=== PATIENT | male | born 1980 | race African-American/Black ===

== ENCOUNTER 2017-09-17 02:02 | Inpatient (IN) | payer OTHER ==
[2017-09-17] MEDS ORDERED: LORAZEPAM INJ 2 MG/1 ML VIAL IV ONE (03:01)
[2017-09-17] MEDS ORDERED: NORMAL SALINE 1000 ML 1,000 ML IV ONE (03:02)
[2017-09-17] MEDS ORDERED: THIAMINE HCL 100 MG in NORMAL SALINE 50 ML IV ONE (03:03)
[2017-09-17] MEDS ORDERED: MIDAZOLAM HCL 100 ML IV PRN (03:05)
[2017-09-17 03:10] LABS: ABSOLUTE BASOPHILS # (AUTO) 0.1 10^3/uL (0.0-0.2); ABSOLUTE LYMPHOCYTES (AUTO) 0.9 10^3/uL (0.5-4.7); ABSOLUTE MONOCYTES (AUTO) 0.8 10^3/uL (0.1-1.4); ABSOLUTE NEUT (AUTO) 6.4 10^3/uL (1.7-8.2); BASOPHILS % (AUTO) 0.7 % (0-2); EOSINOPHILS % (AUTO) 0.5 % (0-6); HEMATOCRIT 39.3 % (37.9-51.0); HEMOGLOBIN 13.2 g/dL (13.5-17.0); HGB HCT DIFFERENCE 0.3; LYMPHOCYTES % (AUTO) 10.7 % (13-45); MEAN CORPUSCULAR HEMOGLOBIN 29.2 pg (27.0-33.4); MEAN CORPUSCULAR HGB CONC 33.6 g/dL (32.0-36.0); MEAN CORPUSCULAR VOLUME 87 fl (80-97); MONOCYTES % (AUTO) 9.6 % (3-13); RED BLOOD COUNT 4.52 10^6/uL (4.35-5.55); RED CELL DISTRIBUTION WIDTH 13.9 % (11.5-14.0); SEGMENTED NEUTROPHILS % (AUTO) 78.5 % (42-78); WHITE BLOOD COUNT 8.1 10^3/uL (4.0-10.5)
--- NOTE | 2017-09-17 03:42 | RADIOLOGY REPORT (SQ) ---
EXAM DESCRIPTION: CT HEAD WITHOUT COMPLETED DATE/TIME: 09/17/2017 3:27 am REASON FOR STUDY: seizure COMPARISON: None. TECHNIQUE: Axial images acquired through the brain without intravenous contrast. Images reviewed wi th bone, brain and subdural windows. Images stored on PACS. All CT scanners at this facility use dose modulation, iterative reconstruction, and/or weight based d osing when appropriate to reduce radiation dose to as low as reasonably achievable (ALARA). [facility]: Dose Right [facility]: CareDose [facility]: Dose Right [facility]: Teradose 4D [facility]: Smart Mirror Digital RADIATION DOSE: Up-to-date CT equipment and radiation dose reduction techniques were employed. CTDIv ol: 29.0 mGy. DLP: 639 mGy-cm. mGy. LIMITATIONS: None. FINDINGS: VENTRICLES: Normal size and contour. CEREBRUM: No mass effect. No hemorrhage. No midline shift. Normal eng/white matter differentiatio n. No evidence for acute territorial infarction. CEREBELLUM: No mass effect. No hemorrhage. No alteration of density. No evidence for acute infarct ion. EXTRAAXIAL SPACES: No fluid collections. ORBITS AND GLOBE: Symmetrical contour of the globes. CALVARIUM: No depressed skull fracture. PARANASAL SINUSES: No air-fluid level. SOFT TISSUES: No hematoma. IMPRESSION: No acute intracranial hemorrhage or acute territorial infarct. EVIDENCE OF ACUTE STROKE: NO. COMMENT: Quality ID # [id number]: Final reports with documentation of one or more dose reduction techniques (e.g., Automated exposure control, adjustment of the mA and/or kV according to patient size, use of iterative reconstruction technique) TECHNICAL DOCUMENTATION: JOB ID: [id number] [employer]- All Rights Reserved
[2017-09-17 04:03] LABS: ALANINE AMINOTRANSFERASE 138 U/L (21-72); ALKALINE PHOSPHATASE 44 U/L (38-126); ANION GAP 16 (5-19); ASPARTATE AMINO TRANSFERASE 90 U/L (17-59); BILIRUBIN,DIRECT 0.4 mg/dL (0.0-0.4); BILIRUBIN,TOTAL 0.7 mg/dL (0.2-1.3); BLOOD UREA NITROGEN 13 mg/dL (7-20); CALCIUM 10.6 mg/dL (8.4-10.2); CARBON DIOXIDE 24 mmol/L (22-30); CHLORIDE 96 mmol/L (98-107); CREATININE RESULT 0.72 mg/dL (0.52-1.25); GLUCOSE 108 mg/dL (75-110); LIPASE 160.8 U/L (23-300); MAGNESIUM 1.9 mg/dL (1.6-2.3); POTASSIUM 4.4 mmol/L (3.6-5.0); SODIUM 136.3 mmol/L (137-145); TOTAL PROTEIN 7.9 g/dL (6.3-8.2)
--- NOTE | 2017-09-17 04:14 | ER Document Report ---
ED General - General Chief Complaint: Probable Seizure Stated Complaint: POSSIBLE SEIZURE Time Seen by Provider: 09/17/17 02:35 Notes: Patient is a 29-year-old male who presents with complaint of seizure-like activity. Patient says all day he has felt very anxious and has been sweating and having almost what feels to be hallucinations to him. He does have history of anxiety and panic but says he does not think it is a reason to be anxious or panicky right now. He does have a history of PTSD. In further review of history comes out that he is an alcoholic. He says he does drink every day. He says he drinks between 6-8 beers a day. He says he has not drink any alcohol in the last 36 hours. Today had a witnessed seizure by the . says the seizure lasted close to 20 minutes. She says that he was foaming at the mouth and clenched very tight in all his muscles and throughout his jaw. He has no previous history of seizure disorder. He says his muscles are sore all over because of the episode. TRAVEL OUTSIDE OF THE [place] IN LAST 30 DAYS: No - Related Data Allergies/Adverse Reactions: No Known Allergies Allergy (Verified 04/13/12 02:19) Past Medical History - Social History Smoking Status: Unknown if Ever Smoked Frequency of alcohol use: Heavy Drug Abuse: None Family History: Reviewed & Not Pertinent Patient has suicidal ideation: No Patient has homicidal ideation: No Renal/ Medical History: Denies: Hx Peritoneal Dialysis - Immunizations Hx Diphtheria, Pertussis, Tetanus Vaccination: - nutd Review of Systems - Review of Systems Notes: My Normal Review Basic REVIEW OF SYSTEMS: CONSTITUTIONAL : Denies fever, chills, or sweats. Denies recent illness. EENT: Denies eye, ear, throat, or mouth pain or symptoms. Denies nasal or sinus congestion. RESPIRATORY: Denies cough, cold, or chest congestion. Denies shortness of breath, difficulty breathing, or wheezing. GASTROINTESTINAL: Denies abdominal pain. Denies nausea, vomiting, or diarrhea. MUSCULOSKELETAL: Denies neck or back pain or joint pain or swelling. SKIN: Denies rash or skin lesions. HEMATOLOGIC : Denies easy bruising or bleeding. LYMPHATIC: Denies swollen, enlarged glands. NEUROLOGICAL: Had seizure-like activity.. PSYCHIATRIC: PTSD.. ALL OTHER SYSTEMS REVIEWED AND NEGATIVE. Physical Exam - Vital signs Vitals: Temp Pulse Resp BP Pulse Ox 98.4 F 95 16 145/95 H 97 09/17/17 02:09 09/17/17 02:09 09/17/17 02:09 09/17/17 02:09 09/17/17 02:09 - Notes Notes: General Appearance: Well nourished, alert, cooperative, no acute distress, no obvious discomfort. Vitals: reviewed, See vital signs table. Head: no swelling or tenderness to the head Eyes: PERRL, EOMI, Conjuctiva clear Mouth: No decreasd moisture Neck: Supple, no neck tenderness Lungs: No wheezing, No rales, No rhonci, No accessory muscle use, good air exchange bilaterally. Heart: Normal rate, Regular rythm, No murmur, no rub Abdomen: Normal BS, soft, No rigidity, No abdominal tenderness, No guarding, no rebound, no abdominal masses, no organomegaly Extremities: strength 5/5 in all extremities, good pulses in all extremities, no swelling or tenderness in the extremities, no edema. Skin: warm, dry, appropriate color, no rash Neuro: speech clear, oriented x 3, normal affect, responds appropriately to questions. Cranial nerves II through XII are intact. Distal sensation intact. Patient was all extremities without difficulty. No focal weakness or numbness. Patient does have a tremor. Course - Re-evaluation Re-evalutation: 09/17/17 04:36 His has have tremors improved. His heart rate is normal. The Ativan has helped him significantly. Is now a little bit somnolent from Ativan. Have given him thiamine as well as folic acid. Patient will be admitted for further monitoring and observation due to what appears to be alcohol withdrawal causing a seizure. 09/17/17 04:37 Dictation of this chart was performed using voice recognition software; therefore, there may be some unintended grammatical errors. - Vital Signs Vital signs: Temp Pulse Resp BP Pulse Ox 98.4 F 95 16 145/95 H 97 09/17/17 02:09 09/17/17 02:09 09/17/17 02:09 09/17/17 02:09 09/17/17 02:09 - Laboratory Result Diagrams: 09/17/17 02:50 09/17/17 02:50 Laboratory results interpreted by me: 09/17/17 09/17/17 02:50 02:50 Hgb 13.2 L Seg Neutrophils % 78.5 H Lymphocytes % 10.7 L Sodium 136.3 L Chloride 96 L Calcium 10.6 H AST 90 H ALT 138 H - EKG Interpretation by Me Additional EKG results interpreted by me: 09/17/17 04:13 EKG is reviewed and interpreted by me. EKG shows some concave up ST segment elevation in lead V1 and also in some of the lateral precordial leads. This is consistent with early repolarization abnormality. ME interval, QRS duration, QTc intervals are within normal range. No old EKG available for comparison. Discharge - Discharge Clinical Impression: Seizure Alcohol withdrawal Qualifiers: Complication of substance-induced condition: with unspecified complication Qualified Code(s): F10.239 - Alcohol dependence with withdrawal, unspecified Condition: Stable Disposition: ADMITTED OBSERVATION Admitting Provider: Hospitalist Unit Admitted: Telemetry
[2017-09-17] MEDS ORDERED: FOLIC ACID INJ 5 MG/1 ML 10 ML VIAL IV ONE (05:00)
[2017-09-17] MEDS ORDERED: MAG HYDROX/AL HYDROX/SIMETH SUSP 30 ML UDCUP PO PRN (05:01)
[2017-09-17] MEDS ORDERED: MAGNESIUM HYDROXIDE SUSP 30 ML UDCUP PO PRN (05:01)
[2017-09-17] MEDS ORDERED: ONDANSETRON HCL INJ/PF 4 MG/2 ML SDV IV PRN (05:01)
[2017-09-17] MEDS ORDERED: PROMETHAZINE HCL 25 MG SUPP.RECT PR PRN (05:01)
[2017-09-17] MEDS ORDERED: NORMAL SALINE 1000 ML 1,000 ML IV PRN (05:01)
[2017-09-17] MEDS ORDERED: LORAZEPAM INJ 2 MG/1 ML VIAL IV PRN (05:06)
--- NOTE | 2017-09-17 05:18 | PDOC H&P ---
History of Present Illness Admission Date/PCP: 09/17/17 04:44 [place] History of Present Illness: KANNAN GERARDO is a 37 year old male with a past medical history significant for hip osteoarthritis who presents to the emergency department with new onset seizure. According to patient's , who is present at bedside and from whom this history is obtained she reports that he has been acting different all day. He reports that he has been hallucinating and would then become short of breath and diaphoretic. She thought he was having an anxiety attack and they went to bed. He fell asleep he woke up and when he woke up from sleep she reports that he began having tonic movement and foaming at the mouth. There was no loss of bowel or bladder function. She reports that he normally drinks 4 -5 16 ounce beers daily plus hard liquor. He has not drink in the last 24 hours. He has no prior history of seizures and no history of recent trauma. Past Medical History Medical History: None Past Surgical History Past Surgical History: Reports: None Social History Information Source: Relative Lives with: Spouse/Significant other Smoking Status: Current Every Day Smoker Cigarettes Packs Per Day: 1 Frequency of Alcohol Use: Heavy Hx Recreational Drug Use: No Hx Prescription Drug Abuse: No - Advance Directive Resuscitation Status: Full Code Surrogate healthcare decision maker:: Mely Gerardo, Family History Family History: CAD Parental Family History Reviewed: Yes Children Family History Reviewed: Yes Sibling(s) Family History Reviewed.: Yes Medication/Allergy Home Medications: No Home Medications 1 04/13/12 Cephalexin Monohydrate [Keflex 500 mg Capsule] 500 mg PO QID 10 Days capsule Allergies/Adverse Reactions: No Known Allergies Allergy (Verified 04/13/12 02:19) Review of Systems ROS unobtainable: Due to mental status Physical Exam Vital Signs: Temp Pulse Resp BP Pulse Ox 98.4 F 95 16 145/95 H 97 09/17/17 02:09 09/17/17 02:09 09/17/17 02:09 09/17/17 02:09 09/17/17 02:09 General appearance: PRESENT: well-developed, well-nourished, other - Sleeping soundly Head exam: PRESENT: atraumatic, normocephalic Eye exam: PRESENT: conjunctiva pink, PERRLA. ABSENT: EOMI - Unable to assess due to sedation, scleral icterus Ear exam: PRESENT: normal external ear exam Mouth exam: PRESENT: other - Unable to assess due to sedation Neck exam: ABSENT: JVD, lymphadenopathy, thyromegaly, tracheal deviation Respiratory exam: PRESENT: clear to auscultation zuhair, unlabored. ABSENT: accessory muscle use, crackles, rales, rhonchi, tachypnea, wheezes Cardiovascular exam: PRESENT: RRR, +S1, +S2, tachycardia. ABSENT: diastolic murmur, gallop, rubs, systolic murmur Pulses: PRESENT: normal dorsalis pedis pul Vascular exam: PRESENT: normal capillary refill GI/Abdominal exam: PRESENT: normal bowel sounds, soft. ABSENT: distended, firm , guarding, mass, Valero's sign, organolmegaly, rebound, rigid, tenderness Rectal exam: PRESENT: deferred Extremities exam: PRESENT: full ROM. ABSENT: calf tenderness, clubbing, pedal edema Neurological exam: PRESENT: other - Sedated Psychiatric exam: PRESENT: other - Sedated Skin exam: PRESENT: dry, intact, warm. ABSENT: cyanosis, rash Results Laboratory Results: 09/17/17 09/17/17 09/17/17 02:50 02:50 02:50 WBC 8.1 Hgb 13.2 L Hct 39.3 Plt Count 218 Sodium 136.3 L Potassium 4.4 Chloride 96 L Anion Gap 16 BUN 13 Creatinine 0.72 Glucose 108 Calcium 10.6 H Magnesium 1.9 Total Bilirubin 0.7 Direct Bilirubin 0.4 AST 90 H ALT 138 H Alkaline Phosphatase 44 Total Protein 7.9 Albumin 5.0 Lipase 160.8 Serum Alcohol Pending Impressions: Head CT 09/17/17 03:04 IMPRESSION: No acute intracranial hemorrhage or acute territorial infarct. EVIDENCE OF ACUTE STROKE: NO. Assessment & Plan - Diagnosis (1) Delirium tremens Is this a current diagnosis for this admission?: Yes Plan: Patient had alcohol withdrawal seizure. Place patient on thiamine, folic acid, multivitamin, and monitor on telemetry for arrhythmia. Magnesium is only slightly low. Continue to monitor. Place patient on scheduled Valium and as needed Ativan. Seizure precautions. (2) Seizure Is this a current diagnosis for this admission?: Yes Plan: Patient had new onset seizure likely secondary to alcohol withdrawal. We will monitor this patient in place on scheduled Valium. (3) Anemia Qualifiers: Anemia type: unspecified type Qualified Code(s): D64.9 - Anemia, unspecified Is this a current diagnosis for this admission?: Yes Plan: Monitor and transfuse if drops below 8 (4) Hyponatremia Is this a current diagnosis for this admission?: Yes Plan: Likely secondary to intravascular volume depletion. Will start on IV fluids (5) Tobacco abuse Is this a current diagnosis for this admission?: Yes Plan: Nicotine patch - Time Time Spent: 30 to 50 Minutes Medications reviewed and adjusted accordingly: Yes Anticipated discharge: Home Within: Other - Upon improvement of symptomatology - Inpatient Certification Based on my medical assessment, after consideration of the patient's comorbidities, presenting symptoms, or acuity I expect that the services needed warrant INPATIENT care.: Yes I certify that my determination is in accordance with my understanding of Medicare's requirements for reasonable and necessary INPATIENT services [42 CFR 412.3e].: Yes Medical Necessity: Need For IV Fluids, Need For Continuous Telemetry Monitoring , Risk of Complication if Not Cared For in Hospital Post Hospital Care: D/C Literacy Coordinator Documentation
[2017-09-17 05:21] LABS: PROTHROMBIN TIME 11.8 SEC (11.4-15.4)
[2017-09-17 06:02] LABS: APPEARANCE,URINE CLEAR; BILIRUBIN,URINE NEGATIVE (NEGATIVE); GLUCOSE, URINE NEGATIVE (NEGATIVE); KETONES,URINE 80 mg/dL (NEGATIVE); LEUKOCYTE ESTERASE,URINE NEGATIVE (NEGATIVE); NITRITE,URINE NEGATIVE (NEGATIVE); PROTEIN,URINE 100 mg/dL (NEGATIVE); URINE SPECIFIC GRAVITY 1.016; UROBILINOGEN,URINE NEGATIVE mg/dL (<2.0)
[2017-09-17 06:12] LABS: URINE BARBITURATES SCREEN NEGATIVE; URINE METHADONE SCREEN NEGATIVE; URINE OPIATES LOW NEGATIVE; URINE PHENCYCLIDINE SCREEN NEGATIVE
[2017-09-17] MEDS ORDERED: THIAMINE HCL INJ 200 MG/2 ML VIAL ONE (06:24)
[2017-09-17] MEDS: DIAZEPAM 5 MG TABLET PO SCH ×4 (07:17→23:02)
[2017-09-17] MEDS: LANSOPRAZOLE 15 MG TAB.RAP.DR PO SCH ×2 (07:18→17:47)
[2017-09-17] MEDS: ENOXAPARIN SODIUM INJ 40 MG/0.4 ML DISP.SYRIN SUBCUT SCH (09:08)
[2017-09-17] MEDS ORDERED: NICOTINE 14 MG/24 HR PATCH.TD24 TD SCH (10:00)
[2017-09-17] MEDS: NICOTINE 21 MG/24 HR PATCH.TD24 TD SCH (11:08)
--- NOTE | 2017-09-17 12:47 | Progress Note ---
Provider Note Provider Note: Patient is seen this morning. He did state that he had had some beer on Sunday and he had his seizure early Sunday morning. in the room at bedside states that he needs assistance and possibly rehab the patient denies needing rehab at this point and said that he could quit if he wanted to. Encourage alcohol and smoking cessation. Offered some information regarding both. I have increased his nicotine patch to 21 day, and did have a long discussion regarding lifestyle modification changes in behavior needed and to avoid alcohol use. No further intervention with an seizure medication needed at this time continue to monitor and follow.
[2017-09-17] MEDS: ACETAMINOPHEN 325 MG TABLET PO PRN ×2 (17:36→21:39)
[2017-09-17] MEDS ORDERED: NORMAL SALINE 1000 ML 1,000 ML with POTASSIUM CHLORIDE 20 MEQ, MAGNESIUM SULFATE 8 MEQ,... IV SCH ×5 (18:00)
[2017-09-17] MEDS ORDERED: NICOTINE 21 MG/24 HR PATCH.TD24 TD ONE (18:00)
--- NOTE | 2017-09-17 19:11 | EKG REPORT ---
SEVERITY:- ABNORMAL ECG - SINUS RHYTHM LEFT VENTRICULAR HYPERTROPHY ST ELEV, PROBABLE NORMAL EARLY REPOL PATTERN VS LVH VS NM : Confirmed by: Jose De Jesus Tuttle 17-Sep-2017 19:10:59
[2017-09-18] MEDS: DIAZEPAM 5 MG TABLET PO SCH ×2 (05:05→11:09)
[2017-09-18] MEDS: LANSOPRAZOLE 15 MG TAB.RAP.DR PO SCH (05:05)
[2017-09-18 07:13] LABS: ABSOLUTE LYMPHOCYTES (AUTO) 1.1 10^3/uL (0.5-4.7); ABSOLUTE MONOCYTES (AUTO) 0.7 10^3/uL (0.1-1.4); BASOPHILS % (AUTO) 0.6 % (0-2); EOSINOPHILS % (AUTO) 0.5 % (0-6); HEMATOCRIT 37.6 % (37.9-51.0); HEMOGLOBIN 12.7 g/dL (13.5-17.0); HGB HCT DIFFERENCE 0.5; LYMPHOCYTES % (AUTO) 15.7 % (13-45); MEAN CORPUSCULAR HEMOGLOBIN 29.9 pg (27.0-33.4); MEAN CORPUSCULAR HGB CONC 33.9 g/dL (32.0-36.0); MEAN CORPUSCULAR VOLUME 88 fl (80-97); MONOCYTES % (AUTO) 9.9 % (3-13); RED BLOOD COUNT 4.26 10^6/uL (4.35-5.55); RED CELL DISTRIBUTION WIDTH 14.4 % (11.5-14.0); SEGMENTED NEUTROPHILS % (AUTO) 73.3 % (42-78); WHITE BLOOD COUNT 6.9 10^3/uL (4.0-10.5)
[2017-09-18 07:33] LABS: ALANINE AMINOTRANSFERASE 124 U/L (21-72); ALBUMIN 4.4 g/dL (3.5-5.0); ALKALINE PHOSPHATASE 34 U/L (38-126); ANION GAP 15 (5-19); ASPARTATE AMINO TRANSFERASE 101 U/L (17-59); BILIRUBIN,DIRECT 0.4 mg/dL (0.0-0.4); BILIRUBIN,TOTAL 0.7 mg/dL (0.2-1.3); BLOOD UREA NITROGEN 9 mg/dL (7-20); CALCIUM 9.8 mg/dL (8.4-10.2); CARBON DIOXIDE 22 mmol/L (22-30); CHLORIDE 104 mmol/L (98-107); CREATININE RESULT 0.81 mg/dL (0.52-1.25); GLUCOSE 89 mg/dL (75-110); POTASSIUM 4.6 mmol/L (3.6-5.0); SODIUM 140.6 mmol/L (137-145); TOTAL PROTEIN 6.8 g/dL (6.3-8.2)
[2017-09-18] MEDS: ACETAMINOPHEN 325 MG TABLET PO PRN (09:50)
[2017-09-18] MEDS: NICOTINE 21 MG/24 HR PATCH.TD24 TD SCH (09:50)
[2017-09-18] MEDS: ENOXAPARIN SODIUM INJ 40 MG/0.4 ML DISP.SYRIN SUBCUT SCH (09:51)
[2017-09-18 14:56] VITALS: BP 125/83
--- NOTE | 2017-09-18 15:44 | PDOC DISCHARGE SUMMARY ---
General - Admit/Disc Date/PCP Admission Date/Primary Care Provider: 09/17/17 05:01 Discharge Date: 09/18/17 - Discharge Diagnosis (1) Alcohol withdrawal Summary: Pt was admitted for new onset seizure in the setting of alcohol withdrawal. Pt reports drinking "at least a 6-pack a day with some harder stuff sometimes." His last alcoholic drink prior to seizure was > 24 hours. He was admitted with EtOH withdrawal protocol and received scheduled valium. He did not require prn ativan and did not experience any additional seizure activity. Pt declined to stay for continued EtOH detox and to meet with discharge planning to arrange outpatient rehab or intensive therapy. He did briefly meet with Social Work and was provided community resources. (2) Anemia Is this a current diagnosis for this admission?: Yes Summary: Stable at 12.7; recommend outpatient follow up. Likely r/t nutritional deficiency in setting of EtOH dependance. (3) Delirium tremens Is this a current diagnosis for this admission?: Yes Summary: As above. (4) Hyponatremia Is this a current diagnosis for this admission?: Yes Summary: Resolved. (5) Seizure Is this a current diagnosis for this admission?: Yes Summary: Per ; seizure-like activity noted to include tonic movements and foaming at the mouth after cessation of alcohol intake > 24 hours previously. No additional seizures noted while admitted. Long discussion had with patient, present, with regard to increased seizure risk r/t alcohol intake and sudden cessation of EtOH. Recommended continued inpatient treatment of alcohol withdrawal with scheduled and prn BZO; pt declined. Encouraged to return to ED for worsening withdrawal and increased seizure activity. (6) Tobacco abuse Is this a current diagnosis for this admission?: Yes - Additional Information Resuscitation Status: Full Code Discharge Diet: As Tolerated Discharge Activity: Activity As Tolerated, Balance Activity w/Rest Home Medications: Bupropion HCl [Wellbutrin Xl 300mg 24hr Tablet] 300 mg PO DAILY 09/17/17 Escitalopram Oxalate [Lexapro] 10 mg PO DAILY 09/17/17 Diazepam [Valium 5 mg Tablet] 5 mg PO TID #9 tablet 09/18/17 Folic Acid [Folvite 1 mg Tablet] 1 mg PO DAILY #30 tablet 09/18/17 Thiamine HCl [Thiamine 100 mg Tablet] 100 mg PO DAILY #30 tablet 09/18/17 History of Present Illness Patient complains of: Hx of new-onset seizure History of Present Illness: Per H&P by Dr. Loaiza: KANNAN MENDES is a 37 year old male with a past medical history significant for hip osteoarthritis who presents to the emergency department with new onset seizure. According to patient's wide, who is present at bedside and from whom this history is obtained she reports that he has been acting differently all day. He reports that he has been hallucinating and would then become short of breath and diaphoretic. She thought he was having anxiety attack and they went to bed. He fell asleep he woke up and when he woke up from sleep she reports that he began having tonic movement and foaming at the mouth. There was no loss of bowel or bladder function. She reports that he normally drinks 4-5 16 ounce beers daily plus hard liquor. He has not drink in the last 24 hours. He has no prior history of seizure and no history of recent trauma. Hospital Course Hospital Course: Pt was admitted for new-onset seizure r/t EtOH withdrawal. He was placed on withdrawal protocol with scheduled valium and prn ativan. No additional seizure -like activity was noted. Pt is adamant with regard to discharge home today and declines to remain inpatient for continued detox/etoh withdrawal management or to meet with corporate event planner to arrange outpatient therapy. His discharged home in stable condition with rx for valium and community resource information. Physical Exam Vital Signs: Temp Pulse Resp BP Pulse Ox 98.1 F 80 17 125/83 95 09/18/17 14:54 09/18/17 14:54 09/18/17 14:54 09/18/17 14:54 09/18/17 14:54 Intake & Output 09/17/17 09/18/17 09/19/17 06:59 06:59 06:59 Intake Total 2330 222 Balance 2330 222 Weight 61.1 kg General appearance: PRESENT: no acute distress, well-developed, well-nourished Head exam: PRESENT: atraumatic, normocephalic Eye exam: PRESENT: conjunctiva pink, EOMI, PERRLA. ABSENT: scleral icterus Ear exam: PRESENT: normal external ear exam Mouth exam: PRESENT: moist, tongue midline Neck exam: ABSENT: carotid bruit, JVD, lymphadenopathy, thyromegaly Respiratory exam: PRESENT: clear to auscultation zuhair. ABSENT: rales, rhonchi, wheezes Cardiovascular exam: PRESENT: RRR. ABSENT: diastolic murmur, rubs, systolic murmur Pulses: PRESENT: normal dorsalis pedis pul Vascular exam: PRESENT: normal capillary refill GI/Abdominal exam: PRESENT: normal bowel sounds, soft. ABSENT: distended, guarding, mass, organolmegaly, rebound, tenderness Rectal exam: PRESENT: deferred Extremities exam: PRESENT: full ROM. ABSENT: calf tenderness, clubbing, pedal edema Neurological exam: PRESENT: alert, awake, oriented to person, oriented to place , oriented to time, oriented to situation, CN II-XII grossly intact. ABSENT: motor sensory deficit Psychiatric exam: PRESENT: appropriate affect, normal mood. ABSENT: homicidal ideation, suicidal ideation Skin exam: PRESENT: dry, intact, warm. ABSENT: cyanosis, rash Results Laboratory Results: 09/18/17 06:34 09/18/17 06:34 09/18/17 09/18/17 06:34 06:34 WBC 6.9 RBC 4.26 L Hgb 12.7 L Hct 37.6 L MCV 88 MCH 29.9 MCHC 33.9 RDW 14.4 H Plt Count 194 Seg Neutrophils % 73.3 Lymphocytes % 15.7 Monocytes % 9.9 Eosinophils % 0.5 Basophils % 0.6 Absolute Neutrophils 5.0 Absolute Lymphocytes 1.1 Absolute Monocytes 0.7 Absolute Eosinophils 0.0 Absolute Basophils 0.0 Sodium 140.6 Potassium 4.6 Chloride 104 Carbon Dioxide 22 Anion Gap 15 BUN 9 Creatinine 0.81 Est GFR ( Amer) > 60 Est GFR (Non-Af Amer) > 60 Glucose 89 Calcium 9.8 Magnesium 2.0 Total Bilirubin 0.7 AST 101 H ALT 124 H Alkaline Phosphatase 34 L Total Protein 6.8 Albumin 4.4 Impressions: Head CT 09/17/17 03:04 IMPRESSION: No acute intracranial hemorrhage or acute territorial infarct. EVIDENCE OF ACUTE STROKE: NO.
== END 2017-09-18 15:44 | disposition home or self-care (01) | DRG 897 ==
LOC: ER 02:02 → EH 04:44 → OBSVTOIN 05:01 → 3S 07:01
PROVIDERS: ADMIT Family Medicine; ATTEND Family Medicine
DX: F10.231 Alcohol dependence with withdrawal delirium (principal); E87.1 Hypo-osmolality and hyponatremia; Y90.0 Blood alcohol level of less than 20 mg/100 ml; F17.210 Nicotine dependence, cigarettes, uncomplicated; R56.9 Unspecified convulsions; M16.10 Unilateral primary osteoarthritis, unspecified hip; D64.9 Anemia, unspecified; Z82.49 Family history of ischemic heart disease and other diseases of the circulatory system
CPT/HCPCS: 36415; 70450; 80053; 80307; 81001; 82550; 83690; 83735; 84443; 85025; 85610; 93005; 93010; 96361; 96374; 96375; 99285; J1650; J2060; J3411; J3475; J3480; J3490; J7030

== ENCOUNTER 2017-10-06 18:56 | Emergency (ER) | payer OTHER ==
[2017-10-06] MEDS ORDERED: LORAZEPAM 1 MG TABLET PO ONE (19:19)
--- NOTE | 2017-10-06 19:19 | ER Document Report ---
ED General - General Chief Complaint: Anxiety Stated Complaint: SEIZURE Time Seen by Provider: 10/06/17 19:18 Mode of Arrival: Ambulatory Information source: Patient Notes: 37-year-old male history of alcohol abuse who drinks approximately 2-3 24 ounces beers a day plus hard liquor presents with concerns that he is anxious feels like he is going to seize. Patient notes the last time he was admitted after seizure. He was having hallucinations at that time. Patient denies any fevers or chills denies any nausea vomiting diarrhea. Patient did not actually seize this time. TRAVEL OUTSIDE OF THE [place] IN LAST 30 DAYS: No - HPI Onset: Just prior to arrival - Patient's last drink was last night Onset/Duration: Sudden Quality of pain: No pain Severity: Mild Pain Level: Denies Associated symptoms: Other - Anxious Exacerbated by: Denies Relieved by: Other - Alcohol Similar symptoms previously: Yes Recently seen / treated by doctor: Yes - Related Data Allergies/Adverse Reactions: No Known Allergies Allergy (Verified 10/06/17 18:58) Past Medical History - Social History Smoking Status: Never Smoker Cigarette use (# per day): No Chew tobacco use (# tins/day): No Smoking Education Provided: No Family History: CAD Patient has suicidal ideation: No Patient has homicidal ideation: No Renal/ Medical History: Denies: Hx Peritoneal Dialysis Psychiatric Medical History: Denies: Hx Depression - Immunizations Hx Diphtheria, Pertussis, Tetanus Vaccination: - nutd Review of Systems - Review of Systems Notes: REVIEW OF SYSTEMS: CONSTITUTIONAL : Denies fever, chills, or sweats. Denies recent illness. EENT: Denies eye, ear, throat, or mouth pain or symptoms. Denies nasal or sinus congestion or discharge. Denies throat, tongue, or mouth swelling or difficulty swallowing. CARDIOVASCULAR: Denies chest pain. Denies palpitations or racing or irregular heart beat. Denies ankle edema. RESPIRATORY: Denies cough, cold, or chest congestion. Denies shortness of breath, difficulty breathing, or wheezing. GASTROINTESTINAL: Denies abdominal pain or distention. Denies nausea, vomiting , or diarrhea. Denies blood in vomitus, stools, or per rectum. Denies black, tarry stools. Denies constipation. GENITOURINARY: Denies difficulty urinating, painful urination, burning, frequency, blood in urine, or discharge. MUSCULOSKELETAL: Denies back or neck pain or stiffness. Denies joint pain or swelling. SKIN: Denies rash, lesions or sores. HEMATOLOGIC : Denies easy bruising or bleeding. LYMPHATIC: Denies swollen, enlarged glands. NEUROLOGICAL: Admits to anxiety PSYCHIATRIC: Denies anxiety or stress. Denies depression, suicidal ideation, or homicidal ideation. ALL OTHER SYSTEMS REVIEWED AND NEGATIVE. Dictation was performed using [employer] voice recognition software PHYSICAL EXAMINATION: GENERAL: Well-appearing, well-nourished and in no acute distress. HEAD: Atraumatic, normocephalic. EYES: Pupils equal round and reactive to light, extraocular movements intact, sclera anicteric, conjunctiva are normal. ENT: Nares patent, oropharynx clear without exudates. Moist mucous membranes. NECK: Normal range of motion, supple without lymphadenopathy LUNGS: Breath sounds clear to auscultation bilaterally and equal. No wheezes rales or rhonchi. HEART: Regular rate and rhythm without murmurs ABDOMEN: Soft, nontender, nondistended abdomen. No guarding, no rebound. No masses appreciated. Musculoskeletal: Normal range of motion, no pitting or edema. No cyanosis. NEUROLOGICAL: Cranial nerves grossly intact. Normal speech, normal gait. Normal sensory, motor exams PSYCH: Normal mood, normal affect. SKIN: Warm, Dry, normal turgor, no rashes or lesions noted. Physical Exam - Vital signs Vitals: Temp Pulse Resp BP Pulse Ox 98.3 F 93 18 149/91 H 99 10/06/17 18:58 10/06/17 18:58 10/06/17 18:58 10/06/17 18:58 10/06/17 18:58 Course - Re-evaluation Re-evalutation: 10/06/17 19:31 Patient has not seized today however if he does stop drinking suddenly he does have the possibility of a alcohol withdrawal seizure. Overall he appears mildly anxious 10/06/17 20:31 Patient's lab work notes no significant abnormality, he otherwise looks well in no distress. I will discharge at this time with Ativan and very strict return precautions After performing a Medical Screening Examination, I estimate there is LOW risk for ACUTE GLAUCOMA, TEMPORAL ARTERITIS, MENINGITIS, INCRANIAL HEMORRHAGE, or ISCHEMIC STROKE thus I consider the discharge disposition reasonable. I have reevaluated this patient multiple times and no significant life threatening changes are noted. The patient and I have discussed the diagnosis and risks, and we agree with discharging home with close follow-up with the understanding that symptoms and presentations can change. We also discussed returning to the Emergency Department immediately if new or worsening symptoms occur. We have discussed the symptoms which are most concerning (e.g., changing or worsening symptoms, new numbness or weakness, vomiting, fever) that necessitate immediate return. - Vital Signs Vital signs: Temp Pulse Resp BP Pulse Ox 98.3 F 93 18 149/91 H 99 10/06/17 18:58 10/06/17 18:58 10/06/17 18:58 10/06/17 18:58 10/06/17 18:58 - Laboratory Result Diagrams: 10/06/17 19:26 10/06/17 19:26 Laboratory results interpreted by me: 10/06/17 10/06/17 19:26 19:26 Hgb 13.2 L RDW 14.4 H AST 62 H ALT 91 H Discharge - Discharge Clinical Impression: Anxiety Alcohol withdrawal Qualifiers: Complication of substance-induced condition: uncomplicated Qualified Code(s): F10.230 - Alcohol dependence with withdrawal, uncomplicated Condition: Stable Disposition: HOME, SELF-CARE Instructions: Alcohol Withdrawl ([facility]), Anxiety ([facility]) Additional Instructions: Please follow-up with your primary care physician regarding her alcohol use, do not stop your alcohol use suddenly, wean yourself off slowly so you do not have a seizure Prescriptions: Lorazepam [Ativan 1 mg Tablet] 1 mg PO Q4 PRN #14 tab PRN Reason:
[2017-10-06 19:51] LABS: ABSOLUTE BASOPHILS # (AUTO) 0.1 10^3/uL (0.0-0.2); ABSOLUTE EOSINOPHILS # (AUTO) 0.1 10^3/uL (0.0-0.6); ABSOLUTE LYMPHOCYTES (AUTO) 1.6 10^3/uL (0.5-4.7); ABSOLUTE MONOCYTES (AUTO) 0.7 10^3/uL (0.1-1.4); ABSOLUTE NEUT (AUTO) 7.1 10^3/uL (1.7-8.2); BASOPHILS % (AUTO) 0.5 % (0-2); EOSINOPHILS % (AUTO) 0.7 % (0-6); HEMATOCRIT 39.2 % (37.9-51.0); HEMOGLOBIN 13.2 g/dL (13.5-17.0); HGB HCT DIFFERENCE 0.4; LYMPHOCYTES % (AUTO) 16.6 % (13-45); MEAN CORPUSCULAR HEMOGLOBIN 29.9 pg (27.0-33.4); MEAN CORPUSCULAR HGB CONC 33.7 g/dL (32.0-36.0); MEAN CORPUSCULAR VOLUME 89 fl (80-97); MONOCYTES % (AUTO) 7.7 % (3-13); RED BLOOD COUNT 4.42 10^6/uL (4.35-5.55); RED CELL DISTRIBUTION WIDTH 14.4 % (11.5-14.0); SEGMENTED NEUTROPHILS % (AUTO) 74.5 % (42-78); WHITE BLOOD COUNT 9.6 10^3/uL (4.0-10.5)
[2017-10-06 20:25] LABS: ALANINE AMINOTRANSFERASE 91 U/L (21-72); ALKALINE PHOSPHATASE 42 U/L (38-126); ANION GAP 12 (5-19); ASPARTATE AMINO TRANSFERASE 62 U/L (17-59); BILIRUBIN,DIRECT 0.4 mg/dL (0.0-0.4); BILIRUBIN,TOTAL 0.5 mg/dL (0.2-1.3); BLOOD UREA NITROGEN 10 mg/dL (7-20); CALCIUM 9.9 mg/dL (8.4-10.2); CARBON DIOXIDE 25 mmol/L (22-30); CHLORIDE 103 mmol/L (98-107); CREATININE RESULT 0.74 mg/dL (0.52-1.25); GLUCOSE 83 mg/dL (75-110); POTASSIUM 3.7 mmol/L (3.6-5.0); SODIUM 140.3 mmol/L (137-145); TOTAL PROTEIN 7.8 g/dL (6.3-8.2)
[2017-10-06 20:29] LABS: ALCOHOL < 10 mg/dL (NONE DETECTED)
[2017-10-06 20:43] VITALS: BP 142/87
== END 2017-10-06 20:42 | disposition home or self-care (01) ==
LOC: ER 18:56
DX: F10.230 Alcohol dependence with withdrawal, uncomplicated (principal); F41.9 Anxiety disorder, unspecified
CPT/HCPCS: 36415; 80053; 80307; 85025; 99283

== ENCOUNTER 2018-02-15 14:58 | Emergency (ER) | payer OTHER ==
[2018-02-15] MEDS ORDERED: LORAZEPAM INJ 2 MG/1 ML VIAL IV ONE (15:47)
[2018-02-15] MEDS ORDERED: RINGERS SOLUTION,LACTATED 1,000 ML IV ONE (15:49)
--- NOTE | 2018-02-15 15:53 | ER Document Report ---
ED Substance Abuse / Acc. OD - General Mode of Arrival: Ambulatory Information source: Patient TRAVEL OUTSIDE OF THE [place] IN LAST 30 DAYS: No - HPI Patient complains to provider of: Alcohol withdrawal Onset: Yesterday Associated Symptoms: Other - see notes above <GARTH MATUTE - Last Filed: 02/15/18 15:46> <JOANIE AVILA - Last Filed: 02/15/18 21:15> - General Chief Complaint: Alcohol Withdrawl Stated Complaint: HEADACHE, DIFFICULTY BREATHING Time Seen by Provider: 02/15/18 15:31 Notes: 37 year old male with history of alcohol abuse, PTSD, depression, and anxiety presents to the ED complaining of being in alcohol withdrawal that started last night. Patient reports that he was seen in the ED in September 2017 after having an alcohol withdrawal seizure. Patient reports that he had 12-18 12 oz beers yesterday. Patient's withdrawal symptoms include generalized tremors, nausea, headache, and 'seeing white spots' when he closes his eyes. Patient's symptoms were worse this morning, so the patient drank 3 12 oz beers to help with his symptoms. Patient wants to quit drinking and is open to receiving assistance. PCP: [facility] Patient has prescription bottles of 5mg Valium (filled August 2017) and 1mg Ativan (filled 10/07/2017). (GARTH MATUTE) - Related Data Allergies/Adverse Reactions: No Known Allergies Allergy (Verified 02/15/18 14:59) Past Medical History - General Information source: Patient - Social History Smoking Status: Current Every Day Smoker Chew tobacco use (# tins/day): No Frequency of alcohol use: Heavy Drug Abuse: None Family History: CAD Renal/ Medical History: Denies: Hx Peritoneal Dialysis Psychiatric Medical History: Reports: Hx Anxiety, Hx Depression, Hx Post Traumatic Stress Disorder - Immunizations Hx Diphtheria, Pertussis, Tetanus Vaccination: - nutd <GARTH MATUTE - Last Filed: 02/15/18 15:46> Review of Systems - Review of Systems Constitutional: See HPI, Diaphoresis EENT: See HPI, Other - White spots in his vision when he closes his eyes. Cardiovascular: See HPI, Palpitations, Heart racing Respiratory: No symptoms reported Gastrointestinal: No symptoms reported Neurological/Psychological: See HPI, Anxiety -: Yes All other systems reviewed and negative <JOANIE AVILA - Last Filed: 02/15/18 21:15> Physical Exam <HOTRENCIA MATUTEUR - Last Filed: 02/15/18 15:46> <JOANIE AVILA - Last Filed: 02/15/18 21:15> - Vital signs Vitals: Temp Pulse Resp BP Pulse Ox 98.1 F 127 H 20 170/102 H 100 02/15/18 15:04 02/15/18 15:04 02/15/18 15:04 02/15/18 15:04 02/15/18 15:04 - Notes Notes: GENERAL: Alert, interacts well. No acute distress. HEAD: Normocephalic, atraumatic. EYES: Pupils equal, round, and reactive to light. Extraocular movements intact. ENT: Oral mucosa moist, tongue midline. NECK: Full range of motion. Supple. Trachea midline. LUNGS: Clear to auscultation bilaterally, no wheezes, rales, or rhonchi. No respiratory distress. HEART: Mildly tachycardic with normal rhythm. No murmurs, gallops, or rubs. ABDOMEN: Soft, non-tender. Non-distended. Bowel sounds present in all 4 quadrants. EXTREMITIES: Moves all 4 extremities spontaneously. No edema, radial, and dorsalis pedis pulses 2/4 bilaterally. No cyanosis. NEUROLOGICAL: Alert and oriented x3. Normal speech. Patellar DTRs 2+ bilaterally. PSYCH: Anxious. SKIN: Warm, dry, and normal turgor. No rashes or lesions noted. (GARTH MATUTE) Mild tremor. (JOANIE AVILA) Course <MATUTEGARTH - Last Filed: 02/15/18 15:46> - Laboratory Result Diagrams: 02/15/18 16:20 02/15/18 16:20 <JOANIE AVILA - Last Filed: 02/15/18 21:15> - Re-evaluation Re-evalutation: 02/15/18 18:40 CBC shows slight leukocytosis of 10.8 otherwise unremarkable, CMP shows slightly low sodium 136.9, slight low CO2 at 21, no renal failure, AST is 123 ALT is 185, alkaline phosphatase is low at 34. None of these labs are exceptionally concerning at this time. Serum alcohol is less than 10. EKG is nonischemic. Patient was given a single dose of Ativan IV and all of his symptoms have resolved. Patient was in mild to moderate alcohol withdrawal, the symptoms were very easily controlled, discussed patient with mental health team and they provided the patient with resources regarding local inpatient detox centers but specifically recommended the [place] 28 day voluntary program that he is eligible for through the [facility]. Patient is agreeable to potentially trying this program. Patient will be discharged to home with Librium by mouth and instructed on how to use this. is agreeable to the plan as well although she expresses some concern that he may not take the Librium. We did discuss that if he continues drinking he should not take the Librium and that the Librium will not take away his desire to drink it will simply take away his withdrawal symptoms. (JOANIE AVILA) - Vital Signs Vital signs: Temp Pulse Resp BP Pulse Ox 98.1 F 127 H 19 129/83 H 99 02/15/18 15:04 02/15/18 15:04 02/15/18 19:01 02/15/18 19:00 02/15/18 19:00 - Laboratory Laboratory results interpreted by me: 02/15/18 02/15/18 16:20 16:20 WBC 10.8 H RDW 14.8 H Seg Neutrophils % 82.5 H Lymphocytes % 9.8 L Absolute Neutrophils 8.9 H Sodium 136.9 L Carbon Dioxide 21 L Calcium 10.7 H Direct Bilirubin 0.5 H AST 123 H ALT 185 H Alkaline Phosphatase 34 L Total Protein 8.4 H Albumin 5.1 H - EKG Interpretation by Me Additional EKG results interpreted by me: 02/15/18 18:42 EKG shows sinus rhythm at a rate of 86, normal axis, normal intervals, there is ST segment elevation noted in the 2 which is isolated, T-wave inversions in 3 and aVF, these do not meet STEMI criteria, he does have LVH with an early repolarization pattern. Per my interpretation. (JOANIE AVILA) Discharge <GARTH MATUTE - Last Filed: 02/15/18 15:46> <JOANIE AVILA - Last Filed: 02/15/18 21:15> - Discharge Clinical Impression: Alcohol abuse Alcohol withdrawal Qualifiers: Complication of substance-induced condition: uncomplicated Qualified Code(s): F10.230 - Alcohol dependence with withdrawal, uncomplicated Condition: Stable Disposition: HOME, SELF-CARE Additional Instructions: Alcohol Withdrawal Your symptoms are caused by alcohol withdrawal. After a period of frequent drinking, the brain and body are changed by the alcohol. When you quit or reduce your drinking, the nervous system becomes unstable. Withdrawal symptoms can start a few hours after your last drink, but sometimes don't begin until a couple of days later. Symptoms can include shakiness, sweating, insomnia, nausea , vomiting, fearfulness, hallucinations, and seizures. In addition to the acute effects of alcohol withdrawal, we often have to deal with the medical effects of alcoholism. These problems often include dehydration, stomach irritation, intestinal bleeding, low blood sugar, liver disease, and pancreas inflammation. Treatment for alcohol withdrawal includes mild sedatives, vitamins, and fluids. You need to be with someone who can help if symptoms become severe. Many patients can withdraw at home. Admission to the hospital or a detox facility may be necessary if withdrawal symptoms are severe and uncontrollable. Abstaining from alcohol is the only effective long-term treatment. If you start drinking again, you will not be able to control yourself after the first drink. Treatment programs are available. In addition, many alcoholics benefit from Alcoholics Anonymous or other support groups available through your counselor or [employer] commercial [employer]. [facility] and [facility] are support groups for friends and family members of an alcoholic. Go to the emergency room if you develop persistent vomiting, severe abdominal pain, fever, shortness of breath, hallucinations, uncontrollable tremors, or seizures. Please consider going to the 28 day inpatient program in [place]. I have prescribed you Librium to help with your withdrawal symptoms. Please take 2 tablets every 6 hours today, if this controls your symptoms then take 2 tablets every 8 hours tomorrow, after 2 days decrease to 1 tablet every 8 hours , then after 2 more days decrease to 2 tablets every 12 hours, then after 2 days decrease to 1 tablet every 12 hours, then decrease to 1 tablet in the morning then stop taking them completely. Prescriptions: Chlordiazepoxide HCl [Librium 25 mg Capsule] 1 cap PO ASDIR PRN #40 capsule PRN Reason: Referrals: [facility] [Provider Group] - Follow up as needed Scribe Attestation: 02/15/18 21:15 I personally performed the services described in the documentation, reviewed and edited the documentation which was dictated to the scribe in my presence, and it accurately records my words and actions. (JOANIE AVILA) Scribe Documentation - Scribe Written by Patricia:: Patricia Oropeza, 02/15/2018 1701 acting as scribe for :: Osvaldo <GARTH MATUTE - Last Filed: 02/15/18 15:46>
[2018-02-15 16:48] LABS: ABSOLUTE BASOPHILS # (AUTO) 0.1 10^3/uL (0.0-0.2); ABSOLUTE LYMPHOCYTES (AUTO) 1.1 10^3/uL (0.5-4.7); ABSOLUTE MONOCYTES (AUTO) 0.7 10^3/uL (0.1-1.4); ABSOLUTE NEUT (AUTO) 8.9 10^3/uL (1.7-8.2); BASOPHILS % (AUTO) 0.6 % (0-2); EOSINOPHILS % (AUTO) 0.2 % (0-6); HEMATOCRIT 40.6 % (37.9-51.0); HEMOGLOBIN 13.8 g/dL (13.5-17.0); LYMPHOCYTES % (AUTO) 9.8 % (13-45); MEAN CORPUSCULAR HEMOGLOBIN 29.1 pg (27.0-33.4); MEAN CORPUSCULAR VOLUME 86 fl (80-97); MONOCYTES % (AUTO) 6.9 % (3-13); PLATELET COUNT 192 10^3/uL (150-450); RED BLOOD COUNT 4.74 10^6/uL (4.35-5.55); RED CELL DISTRIBUTION WIDTH 14.8 % (11.5-14.0); SEGMENTED NEUTROPHILS % (AUTO) 82.5 % (42-78); TOTAL CELLS COUNTED % (AUTO) 100 %; WHITE BLOOD COUNT 10.8 10^3/uL (4.0-10.5)
[2018-02-15 17:08] LABS: ALANINE AMINOTRANSFERASE 185 U/L (21-72); ALBUMIN 5.1 g/dL (3.5-5.0); ALKALINE PHOSPHATASE 34 U/L (38-126); ANION GAP 17 (5-19); ASPARTATE AMINO TRANSFERASE 123 U/L (17-59); BILIRUBIN,DIRECT 0.5 mg/dL (0.0-0.4); BILIRUBIN,TOTAL 0.7 mg/dL (0.2-1.3); BLOOD UREA NITROGEN 11 mg/dL (7-20); CALCIUM 10.7 mg/dL (8.4-10.2); CARBON DIOXIDE 21 mmol/L (22-30); CHLORIDE 99 mmol/L (98-107); GLUCOSE 80 mg/dL (75-110); POTASSIUM 4.2 mmol/L (3.6-5.0); SODIUM 136.9 mmol/L (137-145); TOTAL PROTEIN 8.4 g/dL (6.3-8.2)
[2018-02-15 17:09] LABS: ALCOHOL < 10 mg/dL (NONE DETECTED)
[2018-02-15] MEDS ORDERED: LORAZEPAM 1 MG TABLET PO ONE (18:46)
[2018-02-15 19:06] VITALS: BP 129/83
--- NOTE | 2018-02-15 22:00 | EKG REPORT ---
SEVERITY:- BORDERLINE ECG - SINUS RHYTHM BORDERLINE T ABNORMALITIES, INFERIOR LEADS ST ELEV, PROBABLE NORMAL EARLY REPOL PATTERN : Confirmed by: Jose De Jesus Tuttle 15-Feb-2018 21:59:26
== END 2018-02-15 19:06 | disposition home or self-care (01) ==
LOC: ER 14:58
DX: F10.230 Alcohol dependence with withdrawal, uncomplicated (principal); Y90.0 Blood alcohol level of less than 20 mg/100 ml; F41.9 Anxiety disorder, unspecified; R25.1 Tremor, unspecified; R11.0 Nausea; D72.829 Elevated white blood cell count, unspecified; R51 Headache; R61 Generalized hyperhidrosis; H53.8 Other visual disturbances; R00.2 Palpitations; F17.200 Nicotine dependence, unspecified, uncomplicated; R00.0 Tachycardia, unspecified
CPT/HCPCS: 93005; 99285; 96375; 96365; 36415; 80307; 85025; 80053; 93010; J2060; J7120

== ENCOUNTER 2018-04-19 18:50 | Emergency (ER) | payer OTHER ==
--- NOTE | 2018-04-19 19:27 | ER Document Report ---
ED General - General Chief Complaint: Anxiety Stated Complaint: ANXIETY Time Seen by Provider: 04/19/18 19:24 Mode of Arrival: Ambulatory Information source: Patient Notes: 37-year-old male history of alcohol abuse presents with concerns for alcohol withdrawal. Patient notes that he wants to stop drinking drinks 17 beers yesterday had an 18 pack today but that he only drank 2 of them and done without the rest because he wants to stop. Patient notes that he took Librium the last time he wanted to stop and has a refill of the medication but just did not know how to dose it appropriately. He denies any seizure episodes today but notes he has he is in the past patient notes with the Librium he did quite well TRAVEL OUTSIDE OF THE [place] IN LAST 30 DAYS: No - HPI Onset: Just prior to arrival Onset/Duration: Sudden Quality of pain: No pain Severity: Moderate Pain Level: Denies Associated symptoms: Other Exacerbated by: Denies Relieved by: Denies Similar symptoms previously: Yes Recently seen / treated by doctor: Yes - Related Data Allergies/Adverse Reactions: No Known Allergies Allergy (Verified 04/19/18 18:55) Past Medical History - Social History Smoking Status: Current Every Day Smoker Cigarette use (# per day): Yes Chew tobacco use (# tins/day): No Smoking Education Provided: No Frequency of alcohol use: Heavy Drug Abuse: None Family History: CAD Patient has suicidal ideation: No Patient has homicidal ideation: No Renal/ Medical History: Denies: Hx Peritoneal Dialysis Musculoskeltal Medical History: Reports Hx Arthritis Psychiatric Medical History: Reports: Hx Anxiety, Hx Depression, Hx Post Traumatic Stress Disorder - Immunizations Hx Diphtheria, Pertussis, Tetanus Vaccination: - nutd Review of Systems - Review of Systems Notes: REVIEW OF SYSTEMS: CONSTITUTIONAL : Denies fever, chills, or sweats. Denies recent illness. EENT: Denies eye, ear, throat, or mouth pain or symptoms. Denies nasal or sinus congestion or discharge. Denies throat, tongue, or mouth swelling or difficulty swallowing. CARDIOVASCULAR: Denies chest pain. Denies palpitations or racing or irregular heart beat. Denies ankle edema. RESPIRATORY: Denies cough, cold, or chest congestion. Denies shortness of breath, difficulty breathing, or wheezing. GASTROINTESTINAL: Denies abdominal pain or distention. Denies nausea, vomiting , or diarrhea. Denies blood in vomitus, stools, or per rectum. Denies black, tarry stools. Denies constipation. GENITOURINARY: Denies difficulty urinating, painful urination, burning, frequency, blood in urine, or discharge. MUSCULOSKELETAL: Denies back or neck pain or stiffness. Denies joint pain or swelling. SKIN: Denies rash, lesions or sores. HEMATOLOGIC : Denies easy bruising or bleeding. LYMPHATIC: Denies swollen, enlarged glands. NEUROLOGICAL: Denies confusion or altered mental status. Denies passing out or loss of consciousness. Denies dizziness or lightheadedness. Denies headache. Denies weakness or paralysis or loss of use of either side. Denies problems with gait or speech. Denies sensory loss, numbness, or tingling. Denies seizures. PSYCHIATRIC: Anxious ALL OTHER SYSTEMS REVIEWED AND NEGATIVE. Dictation was performed using [employer] voice recognition software PHYSICAL EXAMINATION: GENERAL: Well-appearing, well-nourished and in no acute distress. HEAD: Atraumatic, normocephalic. EYES: Pupils equal round and reactive to light, extraocular movements intact, sclera anicteric, conjunctiva are bilaterally injected ENT: Nares patent, oropharynx clear without exudates. Moist mucous membranes. NECK: Normal range of motion, supple without lymphadenopathy LUNGS: Breath sounds clear to auscultation bilaterally and equal. No wheezes rales or rhonchi. HEART: Regular rate and rhythm without murmurs ABDOMEN: Soft, nontender, nondistended abdomen. No guarding, no rebound. No masses appreciated. Musculoskeletal: Normal range of motion, no pitting or edema. No cyanosis. NEUROLOGICAL: Cranial nerves grossly intact. Normal speech, normal gait. Normal sensory, motor exams PSYCH: Anxious SKIN: Warm, Dry, normal turgor, no rashes or lesions noted. Physical Exam - Vital signs Vitals: Temp Pulse Resp BP Pulse Ox 99.0 F 105 H 22 H 152/89 H 97 04/19/18 19:00 04/19/18 19:00 04/19/18 19:00 04/19/18 19:00 04/19/18 19:00 Course - Re-evaluation Re-evalutation: 04/19/18 19:27 Patient overall stable at this time however he is anxious and can sees I do wish to just check his sodium level and his electrolytes but will give him instructions regarding the use of Librium 04/19/18 20:47 Mild white count elevation which would be consistent with symptoms as well as liver enzyme elevation is noted, patient overall to be stable but anxious takes responsibly for the patient After performing a Medical Screening Examination, I estimate there is LOW risk for any life threatening mental health issues. At this time the patient looks extremely well and has not attempted severe self harm. I have reevaluated this patient multiple times and no significant life threatening changes are noted. The patient and I have discussed the diagnosis and risks, and we agree with discharging home with close follow-up with the understanding that symptoms and presentations can change. We also discussed returning to the Emergency Department immediately if new or worsening symptoms occur. We have discussed the symptoms which are most concerning (hallucinations, thoughts or actions of self harm or harm to others) that necessitate immediate return. - Vital Signs Vital signs: Temp Pulse Resp BP Pulse Ox 99.0 F 100 18 152/80 H 97 04/19/18 19:00 04/19/18 20:00 04/19/18 20:00 04/19/18 20:00 04/19/18 20:00 - Laboratory Result Diagrams: 04/19/18 19:32 04/19/18 19:32 Laboratory results interpreted by me: 04/19/18 04/19/18 19:32 19:32 WBC 15.5 H RDW 14.2 H Seg Neutrophils % 84.7 H Lymphocytes % 8.5 L Absolute Neutrophils 13.2 H Carbon Dioxide 19 L Anion Gap 23 H Glucose 72 L Calcium 11.1 H AST 82 H ALT 131 H Total Protein 9.4 H Albumin 5.8 H Discharge - Discharge Clinical Impression: Anxiety Alcohol withdrawal Qualifiers: Complication of substance-induced condition: uncomplicated Qualified Code(s): F10.230 - Alcohol dependence with withdrawal, uncomplicated Disposition: HOME, SELF-CARE Instructions: Alcohol Withdrawl ([facility]), Anxiety ([facility]) Additional Instructions: Please take 2 tablets every 6 hours today, if this controls your symptoms then take 2 tablets every 8 hours tomorrow, after 2 days decrease to 1 tablet every 8 hours, then after 2 more days decrease to 2 tablets every 12 hours, then after 2 days decrease to 1 tablet every 12 hours, then decrease to 1 tablet in the morning then stop taking them completely.
[2018-04-19 19:45] LABS: ABSOLUTE LYMPHOCYTES (AUTO) 1.3 10^3/uL (0.5-4.7); ABSOLUTE NEUT (AUTO) 13.2 10^3/uL (1.7-8.2); BASOPHILS % (AUTO) 0.2 % (0-2); EOSINOPHILS % (AUTO) 0.1 % (0-6); HEMATOCRIT 43.5 % (37.9-51.0); HEMOGLOBIN 14.5 g/dL (13.5-17.0); LYMPHOCYTES % (AUTO) 8.5 % (13-45); MEAN CORPUSCULAR HEMOGLOBIN 28.5 pg (27.0-33.4); MEAN CORPUSCULAR HGB CONC 33.4 g/dL (32.0-36.0); MEAN CORPUSCULAR VOLUME 86 fl (80-97); MONOCYTES % (AUTO) 6.5 % (3-13); PLATELET COUNT 240 10^3/uL (150-450); RED BLOOD COUNT 5.08 10^6/uL (4.35-5.55); RED CELL DISTRIBUTION WIDTH 14.2 % (11.5-14.0); SEGMENTED NEUTROPHILS % (AUTO) 84.7 % (42-78); TOTAL CELLS COUNTED % (AUTO) 100 %; WHITE BLOOD COUNT 15.5 10^3/uL (4.0-10.5)
[2018-04-19 19:58] LABS: ALANINE AMINOTRANSFERASE 131 U/L (21-72); ALBUMIN 5.8 g/dL (3.5-5.0); ALKALINE PHOSPHATASE 46 U/L (38-126); ASPARTATE AMINO TRANSFERASE 82 U/L (17-59); BILIRUBIN,DIRECT 0.3 mg/dL (0.0-0.4); BILIRUBIN,TOTAL 0.3 mg/dL (0.2-1.3); BLOOD UREA NITROGEN 12 mg/dL (7-20); CALCIUM 11.1 mg/dL (8.4-10.2); CHLORIDE 98 mmol/L (98-107); GLUCOSE 72 mg/dL (75-110); POTASSIUM 4.5 mmol/L (3.6-5.0); TOTAL PROTEIN 9.4 g/dL (6.3-8.2)
[2018-04-19 20:03] LABS: ANION GAP 23 (5-19); CARBON DIOXIDE 19 mmol/L (22-30); SODIUM 139.6 mmol/L (137-145)
[2018-04-19] MEDS ORDERED: LORAZEPAM 1 MG TABLET PO ONE (20:17)
[2018-04-19 20:40] VITALS: BP 152/80
== END 2018-04-19 20:15 | disposition home or self-care (01) ==
LOC: ER 18:50
DX: F41.9 Anxiety disorder, unspecified (principal); F10.230 Alcohol dependence with withdrawal, uncomplicated; F17.210 Nicotine dependence, cigarettes, uncomplicated
CPT/HCPCS: 36415; 80053; 85025; 99283

== ENCOUNTER 2018-12-01 17:37 | Emergency (ER) | payer OTHER ==
--- NOTE | 2018-12-01 19:09 | ER Document Report ---
ED Medical Screen (RME) - General Chief Complaint: Headache Stated Complaint: ANXIETY Time Seen by Provider: 12/01/18 19:05 Mode of Arrival: Ambulatory Information source: Patient TRAVEL OUTSIDE OF THE [place] IN LAST 30 DAYS: No - HPI Patient complains to provider of: Withdrawal Onset: Other - This is a 38-year-old alcoholic who is been a year sober a year ago suffered delirium tremens and a seizure in the setting of having stopping drinking which required hospitalization and monitoring with weaning off of alcohol. He had been abstinent up until a week ago at which time he drank for the first time in a year thereafter he did not drink until last night after which he was hung over today and said that he was worried because of his previous seizure that he would have another seizure is made it difficult for him to go to sleep. He presented in the care of his says that he has no desire to drink but is concerned about the seizure. - Related Data Allergies/Adverse Reactions: No Known Allergies Allergy (Verified 04/19/18 18:55) Past Medical History - General Information source: Patient - Social History Cigarette use (# per day): Yes Frequency of alcohol use: Heavy Drug Abuse: None Neurological Medical History: Reports: Hx Seizures - from ETOH withdrawal Renal/ Medical History: Denies: Hx Peritoneal Dialysis Musculoskeltal Medical History: Reports Hx Arthritis Psychiatric Medical History: Reports: Hx Anxiety, Hx Depression - and anxiety, Hx Post Traumatic Stress Disorder - Immunizations Hx Diphtheria, Pertussis, Tetanus Vaccination: - nutd History of Influenza Vaccine for 08/2017 - 01/2018 Season: No Review of Systems - Review of Systems -: Yes All other systems reviewed and negative Physical Exam - Vital signs Vitals: Temp Pulse Resp BP Pulse Ox 98.7 F 95 16 137/83 H 97 12/01/18 17:40 12/01/18 17:40 12/01/18 17:40 12/01/18 17:40 12/01/18 17:40 Interpretation: Normal - General General appearance: Appears well, Alert - HEENT Head: Normocephalic, Atraumatic Eyes: Normal Pupils: PERRL - Respiratory Respiratory status: No respiratory distress Chest status: Nontender Breath sounds: Normal Chest palpation: Normal - Cardiovascular Rhythm: Regular Heart sounds: Normal auscultation Murmur: No - Abdominal Inspection: Normal Distension: No distension Bowel sounds: Normal Tenderness: Nontender Organomegaly: No organomegaly - Back Back: Normal, Nontender - Extremities General upper extremity: Normal inspection, Nontender, Normal color, Normal ROM, Normal temperature General lower extremity: Normal inspection, Nontender, Normal color, Normal ROM, Normal temperature, Normal weight bearing. No: Shayy's sign - Neurological Neuro grossly intact: Yes Cognition: Normal Orientation: AAOx4 [place] Coma Scale Eye Opening: Spontaneous Marilyn Coma Scale Verbal: Oriented [place] Coma Scale Motor: Obeys Commands Marilyn Coma Scale Total: 15 Speech: Normal Motor strength normal: LUE, RUE, LLE, RLE Sensory: Normal - Psychological Associated symptoms: Normal affect, Normal mood - Skin Skin Temperature: Warm Skin Moisture: Dry Skin Color: Normal Course - Re-evaluation Re-evalutation: This 38-year-old man presents for concern of anxiety and withdrawal symptoms after drinking last night. He had been abstinent for a year prior and I do believe that he is at very low likelihood to have withdrawal symptoms truly or serious delirium tremens. We did discuss treatment options however because I do have some concern related to this gentlemen's mental health and ability to abstain in the setting of potential anxiety, we agreed to utilize Librium in the attempt to mitigate his anxiety and tremors. He agrees with this course of action at this time. States he is planning to abstain from alcohol. He will take Librium tonight if he needs it tomorrow. He will not take any more than that. - Vital Signs Vital signs: Temp Pulse Resp BP Pulse Ox 98.7 F 82 17 129/78 H 97 12/01/18 17:40 12/01/18 19:19 12/01/18 19:19 12/01/18 19:19 12/01/18 19:19 Doctor's Discharge - Discharge Clinical Impression: Alcoholic intoxication with complication Condition: Good Disposition: HOME, SELF-CARE Additional Instructions: You were seen today in the emergency department for your withdrawal symptoms. You had evaluation including a physical exam. I have given you a prescription for Librium. Take the dose tonight. If you are still feeling anxious tomorrow take your dose tomorrow night. Prescriptions: Chlordiazepoxide HCl [Librium 25 mg Capsule] 2 cap PO QHS #6 capsule Forms: Smoking Cessation Education [facility]errals: [facility] [[facility]] - Follow up as needed
[2018-12-01 19:24] VITALS: BP 129/78
== END 2018-12-01 19:21 | disposition home or self-care (01) ==
LOC: ER 17:37
DX: F10.129 Alcohol abuse with intoxication, unspecified (principal); R25.1 Tremor, unspecified; F41.9 Anxiety disorder, unspecified; Z72.0 Tobacco use
CPT/HCPCS: 99283

== ENCOUNTER 2019-04-28 14:12 | Emergency (ER) | payer OTHER ==
[2019-04-28] MEDS ORDERED: LORAZEPAM 1 MG TABLET PO ONE (14:47)
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
[2019-04-28 15:31] LABS: ABSOLUTE BASOPHILS # (AUTO) 0.1 10^3/uL (0.0-0.2); ABSOLUTE EOSINOPHILS # (AUTO) 0.1 10^3/uL (0.0-0.6); ABSOLUTE NEUT (AUTO) 9.9 10^3/uL (1.7-8.2); BASOPHILS % (AUTO) 0.5 % (0-2); EOSINOPHILS % (AUTO) 0.7 % (0-6); HEMOGLOBIN 14.3 g/dL (13.5-17.0); LYMPHOCYTES % (AUTO) 15.3 % (13-45); MEAN CORPUSCULAR HEMOGLOBIN 27.3 pg (27.0-33.4); MEAN CORPUSCULAR HGB CONC 33.2 g/dL (32.0-36.0); MEAN CORPUSCULAR VOLUME 82 fl (80-97); MONOCYTES % (AUTO) 7.4 % (3-13); PLATELET COUNT 251 10^3/uL (150-450); RED BLOOD COUNT 5.23 10^6/uL (4.35-5.55); RED CELL DISTRIBUTION WIDTH 14.5 % (11.5-14.0); SEGMENTED NEUTROPHILS % (AUTO) 76.1 % (42-78); TOTAL CELLS COUNTED % (AUTO) 100 %
[2019-04-28 16:17] LABS: ALANINE AMINOTRANSFERASE 24 U/L (21-72); ALCOHOL 30 mg/dL (NONE DETECTED); ALKALINE PHOSPHATASE 65 U/L (38-126); ANION GAP 13 (5-19); ASPARTATE AMINO TRANSFERASE 37 U/L (17-59); BILIRUBIN,DIRECT 0.2 mg/dL (0.0-0.4); BILIRUBIN,TOTAL 0.5 mg/dL (0.2-1.3); BLOOD UREA NITROGEN 8 mg/dL (7-20); CALCIUM 9.9 mg/dL (8.4-10.2); CARBON DIOXIDE 25 mmol/L (22-30); CHLORIDE 106 mmol/L (98-107); GLUCOSE 84 mg/dL (75-110); POTASSIUM 4.3 mmol/L (3.6-5.0); SODIUM 144.2 mmol/L (137-145); TOTAL PROTEIN 8.2 g/dL (6.3-8.2)
--- NOTE | 2019-04-28 16:34 | ER Document Report ---
ED General - General Chief Complaint: Anxiety Stated Complaint: HEADACHE Time Seen by Provider: 04/28/19 14:40 Primary Care Provider: RADHA,XUAN [Primary Care Provider] - Follow up as needed Mode of Arrival: Ambulatory Notes: Patient is a 38-year-old male with history of anxiety, and alcohol dependence that presents to the emergency department for chief complaint of anxiety, mild headache. Patient states that he is been feeling rather anxious the last few days, he states has been drinking again over the past 2 months on and off, but not like he used to when he used to drink heavily on a daily basis, he states 2 years ago he had an alcohol withdrawal seizure, he ultimately wants to get off of alcohol again, but is fearful that he will have a seizure again so he came to the emergency department. He describes a headache is having is a mild holocephalic headache describes it as a 2 out of 10 aching sensation. He denies having any tremors, palpitations, or any seizure activity at home. States his last drink was around 3 AM last night, he had about 9 beers and some liquor last night as well into the morning. He states his been anxious about his birthday, but denies having any suicidal or homicidal ideations, denies any hallucinations. Past Medical History: Anxiety Past Surgical History: Denies surgical history Social History: Admits to smoking cigarettes, and intermittent alcohol use, denies illicit drug use. Goes to the [facility] for care. Family History: Reviewed and noncontributory for presenting illness Allergies: Reviewed, see documented allergy list. REVIEW OF SYSTEMS: Other than noted above, the 12 point review of systems was reviewed with the patient and were negative, all pertinent findings are included in the HPI. PHYSICAL EXAMINATION: Vital signs reviewed, nursing noted reviewed. GENERAL: Well-appearing, well-nourished and in no acute distress. HEAD: Atraumatic, normocephalic. EYES: Eyes appear normal, extraocular movements intact, sclera anicteric, conjunctiva are normal. ENT: nares patent, oropharynx clear without exudates. Moist mucous membranes. NECK: Normal range of motion, supple without lymphadenopathy LUNGS: Breath sounds clear to auscultation bilaterally and equal. No wheezes rales or rhonchi. HEART: Regular rate and rhythm without murmurs ABDOMEN: Soft, nontender, normoactive bowel sounds. No rebound, guarding, or rigidity. No masses appreciated. EXTREMITIES: Nontender, good range of motion, no pitting or edema. NEUROLOGICAL: No focal neurological deficits. Moves all extremities spontaneously Motor and sensory grossly intact on exam. PSYCH: Mildly pressured speech, but makes good eye contact, answers questions appropriately. SKIN: Warm, Dry, normal turgor, no rashes or lesions noted on exposed skin TRAVEL OUTSIDE OF THE [place] IN LAST 30 DAYS: No - Related Data Allergies/Adverse Reactions: No Known Allergies Allergy (Verified 04/28/19 14:56) Past Medical History - General Information source: Patient - Social History Smoking Status: Current Every Day Smoker Chew tobacco use (# tins/day): No Frequency of alcohol use: None Drug Abuse: None Family History: CAD Patient has suicidal ideation: No Patient has homicidal ideation: No Neurological Medical History: Reports: Hx Seizures - from ETOH withdrawal Renal/ Medical History: Denies: Hx Peritoneal Dialysis Musculoskeletal Medical History: Reports Hx Arthritis Psychiatric Medical History: Reports: Hx Anxiety, Hx Depression - and anxiety, Hx Post Traumatic Stress Disorder - Immunizations Hx Diphtheria, Pertussis, Tetanus Vaccination: - nutd Physical Exam - Vital signs Vitals: Temp Pulse Resp BP Pulse Ox 98.1 F 98 16 143/85 H 97 04/28/19 14:15 04/28/19 14:15 04/28/19 14:15 04/28/19 14:15 04/28/19 14:15 Course - Re-evaluation Re-evalutation: Patient seen and examined vital signs reviewed. Laboratory data and/or imaging were ordered as appropriate for the patient's presenting symptoms and complaint, with consideration of any critical or life threatening conditions that may be associated with their obtained history and exam as noted above. Patient was treated with Ativan ordered in triage Results were reviewed when available and demonstrated unremarkable work-up, the only mild leukocytosis, without evidence of outward infection. The patient was re-evaluated and was stable Evaluation was most consistent with anxiety, will place the patient on short Librium taper, he is not currently drinking alcohol daily, but he is rather anxious, and is afraid of having alcohol withdrawal seizure, will prescribe this to him advised him to follow-up with AA and his primary care at the [facility]. Results were discussed with the patient at this point, after careful consideration I feel that that patient can be discharged from the emergency department, the patient was educated treatments and reasons to return to the e mergency department based on their presumed diagnosis as noted above, they were advised to followup with a primary care physician in 2-3 days. Patient was agreeable to plan of care. *Note is created using voice recognition software and may contain spelling, syntax or grammatical errors. Laboratory 04/28/19 04/28/19 15:12 15:12 WBC 13.0 H RBC 5.23 Hgb 14.3 Hct 43.0 MCV 82 MCH 27.3 MCHC 33.2 RDW 14.5 H Plt Count 251 Seg Neutrophils % 76.1 Lymphocytes % 15.3 Monocytes % 7.4 Eosinophils % 0.7 Basophils % 0.5 Absolute Neutrophils 9.9 H Absolute Lymphocytes 2.0 Absolute Monocytes 1.0 Absolute Eosinophils 0.1 Absolute Basophils 0.1 Sodium 144.2 Potassium 4.3 Chloride 106 Carbon Dioxide 25 Anion Gap 13 BUN 8 Creatinine 0.95 Est GFR ( Amer) > 60 Est GFR (Non-Af Amer) > 60 Glucose 84 Calcium 9.9 Total Bilirubin 0.5 Direct Bilirubin 0.2 Neonat Total Bilirubin Not Reportable Neonat Direct Bilirubin Not Reportable Neonat Indirect Bili Not Reportable AST 37 ALT 24 Alkaline Phosphatase 65 Total Protein 8.2 Albumin 5.0 Serum Alcohol 30 - Vital Signs Vital signs: Temp Pulse Resp BP Pulse Ox 98.1 F 98 16 143/85 H 97 04/28/19 14:15 04/28/19 14:15 04/28/19 14:15 04/28/19 14:15 04/28/19 14:15 - Laboratory Result Diagrams: 04/28/19 15:12 04/28/19 15:12 Laboratory results interpreted by me: 04/28/19 15:12 WBC 13.0 H RDW 14.5 H Absolute Neutrophils 9.9 H Discharge - Discharge Clinical Impression: Anxiety Condition: Stable Disposition: HOME, SELF-CARE Instructions: Anxiety ([facility]) Additional Instructions: Please take the Librium taper as directed, do not drink alcohol while you are taking this medication. Complete the entire taper as directed. [facility] Prescriptions: Chlordiazepoxide HCl [Librium 25 mg Capsule] 1 cap PO ASDIR #24 capsule [facility]errals: [facility] [Primary [facility]] - Follow up in 3-5 days
[2019-04-28 17:55] VITALS: BP 128/83
== END 2019-04-28 17:54 | disposition home or self-care (01) ==
LOC: ER 14:12
DX: F41.9 Anxiety disorder, unspecified (principal); F10.20 Alcohol dependence, uncomplicated; R51 Headache; F17.210 Nicotine dependence, cigarettes, uncomplicated; D72.829 Elevated white blood cell count, unspecified
CPT/HCPCS: 36415; 80053; 80307; 85025; 99283

== ENCOUNTER 2019-06-09 14:57 | Emergency (ER) | payer OTHER ==
[2019-06-09] MEDS ORDERED: ASPIRIN 81 MG TABLET, CHEWABLE PO ONE (17:02)
--- NOTE | 2019-06-09 17:04 | ER Document Report ---
ED Medical Screen (RME) - General Chief Complaint: Palpitations Stated Complaint: HEADACHE,SHORT OF BREATH Time Seen by Provider: 06/09/19 16:57 Primary Care Provider: RADHA,XUAN [Primary Care Provider] - Follow up as needed Mode of Arrival: Ambulatory Information source: Patient Notes: 38-year-old male presents to ED for complaint of chest palpitations for a week. He states he went to the [place] and the left said since he did not have an appointment they cannot seem and if he had chest pains palpitations he needed to go to the emergency room not to the [place] doctor's office. Patient is alert oriented respirations regular and unlabored speaking in full sentences walks with even steady gait. His heart rate is not fast at this time. He states he does smoke 1/2 pack a day but drinks very rarely. I have greeted and performed a rapid initial assessment of this patient. A comprehensive ED assessment and evaluation of the patient, analysis of test results and completion of medical decision making process will be conducted by an additional ED providers. Dictation of this chart was performed using voice recognition software; therefore, there may be some unintended grammatical errors. TRAVEL OUTSIDE OF THE [place] IN LAST 30 DAYS: No - Related Data Allergies/Adverse Reactions: No Known Allergies Allergy (Verified 06/09/19 15:08) Past Medical History Neurological Medical History: Reports: Hx Seizures - from ETOH withdrawal Renal/ Medical History: Denies: Hx Peritoneal Dialysis Musculoskeltal Medical History: Reports Hx Arthritis Psychiatric Medical History: Reports: Hx Anxiety, Hx Depression - and anxiety, Hx Post Traumatic Stress Disorder - Immunizations Hx Diphtheria, Pertussis, Tetanus Vaccination: - nutd History of Influenza Vaccine for 08/2017 - 01/2018 Season: No Physical Exam - Vital signs Vitals: Temp Pulse Resp BP Pulse Ox 98.2 F 71 16 120/87 H 97 06/09/19 15:42 06/09/19 15:42 06/09/19 15:42 06/09/19 15:42 06/09/19 15:42 Course - Vital Signs Vital signs: Temp Pulse Resp BP Pulse Ox 98.2 F 71 16 120/87 H 97 06/09/19 15:42 06/09/19 15:42 06/09/19 15:42 06/09/19 15:42 06/09/19 15:42 Doctor's Discharge - Discharge Referrals: [facility] [[facility]] - Follow up as needed
[2019-06-09 17:50] LABS: APPEARANCE,URINE CLEAR; BILIRUBIN,URINE NEGATIVE (NEGATIVE); COLOR,URINE YELLOW; GLUCOSE, URINE NEGATIVE (NEGATIVE); KETONES,URINE NEGATIVE (NEGATIVE); LEUKOCYTE ESTERASE,URINE NEGATIVE (NEGATIVE); NITRITE,URINE NEGATIVE (NEGATIVE); PROTEIN,URINE NEGATIVE (NEGATIVE); URINE SPECIFIC GRAVITY 1.012; UROBILINOGEN,URINE NEGATIVE mg/dL (<2.0)
--- NOTE | 2019-06-09 17:57 | RADIOLOGY REPORT (SQ) ---
EXAM DESCRIPTION: CHEST 2 VIEWS COMPLETED DATE/TIME: 06/09/2019 5:40 pm REASON FOR STUDY: Chest palpitations COMPARISON: None. EXAM PARAMETERS: NUMBER OF VIEWS: two views TECHNIQUE: Digital Frontal and Lateral radiographic views of the chest acquired. RADIATION DOSE: NA LIMITATIONS: none FINDINGS: LUNGS AND PLEURA: No opacities, masses or pneumothorax. No pleural effusion. MEDIASTINUM AND HILAR STRUCTURES: No masses or contour abnormalities. HEART AND VASCULAR STRUCTURES: Heart normal size. No evidence for failure. BONES: No acute findings. HARDWARE: None in the chest. OTHER: No other significant finding. IMPRESSION: NO ACUTE RADIOGRAPHIC FINDING IN THE CHEST. TECHNICAL DOCUMENTATION: JOB ID: [id number] [id number] 2010 [employer]- All Rights Reserved Reading location - IP/workstation name: [email or web address]
[2019-06-09 18:04] LABS: ABSOLUTE BASOPHILS # (AUTO) 0.1 10^3/uL (0.0-0.2); ABSOLUTE EOSINOPHILS # (AUTO) 0.1 10^3/uL (0.0-0.6); ABSOLUTE LYMPHOCYTES (AUTO) 2.6 10^3/uL (0.5-4.7); ABSOLUTE MONOCYTES (AUTO) 0.7 10^3/uL (0.1-1.4); ABSOLUTE NEUT (AUTO) 8.1 10^3/uL (1.7-8.2); BASOPHILS % (AUTO) 0.9 % (0-2); EOSINOPHILS % (AUTO) 1.1 % (0-6); HEMATOCRIT 42.7 % (37.9-51.0); LYMPHOCYTES % (AUTO) 22.3 % (13-45); MEAN CORPUSCULAR HEMOGLOBIN 26.9 pg (27.0-33.4); MEAN CORPUSCULAR HGB CONC 32.7 g/dL (32.0-36.0); MEAN CORPUSCULAR VOLUME 82 fl (80-97); MONOCYTES % (AUTO) 6.3 % (3-13); PLATELET COUNT 232 10^3/uL (150-450); RED BLOOD COUNT 5.18 10^6/uL (4.35-5.55); RED CELL DISTRIBUTION WIDTH 14.6 % (11.5-14.0); SEGMENTED NEUTROPHILS % (AUTO) 69.4 % (42-78); TOTAL CELLS COUNTED % (AUTO) 100 %; URINE AMPHETAMINES SCREEN NEGATIVE; URINE BARBITURATES SCREEN NEGATIVE; URINE BENZODIAZEPINES SCREEN NEGATIVE; URINE COCAINE SCREEN NEGATIVE; URINE MARIJUANA (THC) SCREEN NEGATIVE; URINE METHADONE SCREEN NEGATIVE; URINE PHENCYCLIDINE SCREEN NEGATIVE; WHITE BLOOD COUNT 11.7 10^3/uL (4.0-10.5)
[2019-06-09 18:28] LABS: ALANINE AMINOTRANSFERASE 21 U/L (21-72); ALBUMIN 4.9 g/dL (3.5-5.0); ALKALINE PHOSPHATASE 52 U/L (38-126); ANION GAP 10 (5-19); ASPARTATE AMINO TRANSFERASE 19 U/L (17-59); BILIRUBIN,DIRECT 0.2 mg/dL (0.0-0.4); BILIRUBIN,TOTAL 0.3 mg/dL (0.2-1.3); BLOOD UREA NITROGEN 12 mg/dL (7-20); CALCIUM 10.1 mg/dL (8.4-10.2); CARBON DIOXIDE 28 mmol/L (22-30); CHLORIDE 102 mmol/L (98-107); CREATINE KINASE 142 U/L (55-170); GLUCOSE 83 mg/dL (75-110); LIPASE 103.3 U/L (23-300); POTASSIUM 4.5 mmol/L (3.6-5.0); SODIUM 139.6 mmol/L (137-145)
[2019-06-09 18:40] LABS: CREATINE KINASE MB 0.43 ng/mL (<4.55); TROPONIN I < 0.012 ng/mL
--- NOTE | 2019-06-10 02:05 | ER Document Report ---
ED General - General Chief Complaint: Palpitations Stated Complaint: HEADACHE,SHORT OF BREATH Time Seen by Provider: 06/09/19 16:57 Primary Care Provider: XUAN GARCIA [NO LOCAL MD] - Follow up as needed Mode of Arrival: Ambulatory Notes: Pleasant 38-year-old male with no past medical history presents to the emergency department with chief complaint of palpitations for 1 week. He went to the [place] last Sunday thinking he had an appointment but did not so he returned today and was told that in order to see a provider he would need an appointment, told him he was having a little bit of shortness of breath with palpitations, and was told by the nurse that he should come to the emergency department because she would not be able to treat him if he was having a heart attack. Patient is currently symptom-free but was having several palpitations when he first arrived to the ER. Denies any fevers or recent illness, denies any vision changes, denies any dizziness/lightheadedness, denies diaphoresis, denies nausea, denies chest pain, denies acute shortness of breath, denies any vomiting or abdominal pain, denies urinary symptoms, no other complaints. TRAVEL OUTSIDE OF THE [place] IN LAST 30 DAYS: No - Related Data Allergies/Adverse Reactions: No Known Allergies Allergy (Verified 06/09/19 15:08) Past Medical History - General Information source: Patient - Social History Smoking Status: Current Every Day Smoker Frequency of alcohol use: Rare Drug Abuse: None Family History: CAD Patient has suicidal ideation: No Patient has homicidal ideation: No Neurological Medical History: Reports: Hx Seizures - from ETOH withdrawal Renal/ Medical History: Denies: Hx Peritoneal Dialysis Musculoskeletal Medical History: Reports Hx Arthritis Psychiatric Medical History: Reports: Hx Anxiety, Hx Depression - and anxiety, Hx Post Traumatic Stress Disorder - Immunizations Hx Diphtheria, Pertussis, Tetanus Vaccination: - nutd Review of Systems - Review of Systems Constitutional: See HPI EENT: No symptoms reported Cardiovascular: See HPI Respiratory: See HPI Gastrointestinal: See HPI Genitourinary: No symptoms reported Male Genitourinary: No symptoms reported Musculoskeletal: No symptoms reported Skin: No symptoms reported Hematologic/Lymphatic: No symptoms reported Neurological/Psychological: See HPI Physical Exam - Vital signs Vitals: Temp Pulse Resp BP Pulse Ox 98.2 F 71 16 120/87 H 97 06/09/19 15:42 06/09/19 15:42 06/09/19 15:42 06/09/19 15:42 06/09/19 15:42 - Notes Notes: PHYSICAL EXAMINATION: Reviewed vital signs and charting by RN GENERAL: Alert, interacts well. No acute distress. HEAD: Normocephalic, atraumatic. EYES: Pupils equal and round. Extraocular movements intact. ENT: Oral mucosa moist, tongue midline. NECK: Full range of motion. Trachea midline. LUNGS: Clear to auscultation bilaterally, no wheezes, rales, or rhonchi. No respiratory distress. HEART: Regular rate and rhythm. No murmur ABDOMEN: soft, non-tender. No distention. Bowel sounds present EXTREMITIES: Moves all 4 extremities spontaneously. No edema, No cyanosis. PSYCH: Normal affect, normal mood. SKIN: Warm, dry, normal turgor. No rashes or lesions noted. Course - Re-evaluation Re-evalutation: 06/10/19 02:12 Overall well-appearing. Patient has no chest pain and presents with asymptomatic palpitations. A troponin was obtained and was negative. I do not feel we need to obtain a delta troponin as I feel this patient is very low risk for ACS, AAA, aortic dissection, PE. I discussed with patient that he should get cardiology follow-up for probable Holter monitor or ZIO patch with a echocardiogram. Patient understands this plan and is in agreement. Stable for discharge. - Vital Signs Vital signs: Temp Pulse Resp BP Pulse Ox 98.6 F 79 17 126/88 H 97 06/09/19 21:32 06/09/19 21:32 06/10/19 01:01 06/10/19 01:01 06/10/19 01:01 - Laboratory Result Diagrams: 06/09/19 17:30 06/09/19 17:30 Laboratory results interpreted by me: 06/09/19 17:30 WBC 11.7 H MCH 26.9 L RDW 14.6 H Discharge - Discharge Clinical Impression: Palpitations with regular cardiac rhythm Condition: Good Disposition: HOME, SELF-CARE Additional Instructions: You were seen in the emergency department this evening for concern for palpitations. There were some that were captured on the monitor but overall all of your lab work and your physical exam was very reassuring. Palpitations are very common and are typically benign in nature. But, it is important to follow- up and get a good thorough cardiology work-up to ensure there is no underlying issues. We have effectively ruled out anything dangerous here in the emergency department this evening. If you develop acute shortness of breath, chest pain, nausea or cold sweats with these palpitations, you pass out, you have the worst headache of your life that is maximal at onset,, or you have any other concerning symptoms please immediately return to the emergency department. [facility]errals: [facility] [NO [facility]AL MD] - Follow up as needed
[2019-06-10 02:13] VITALS: BP 127/88
--- NOTE | 2019-06-10 18:40 | EKG REPORT ---
SEVERITY:- ABNORMAL ECG - SINUS RHYTHM LEFT ATRIAL ABNORMALITY LEFT VENTRICULAR HYPERTROPHY ST ELEV, PROBABLE NORMAL EARLY REPOL PATTERN : Confirmed by: Javier Posada MD 10-Jun-2019 18:40:15
== END 2019-06-10 02:21 | disposition home or self-care (01) ==
LOC: ER 14:57
DX: R00.2 Palpitations (principal); R06.02 Shortness of breath; F17.200 Nicotine dependence, unspecified, uncomplicated; Z82.49 Family history of ischemic heart disease and other diseases of the circulatory system; Z86.59 Personal history of other mental and behavioral disorders
CPT/HCPCS: 36415; 71046; 80053; 80307; 81001; 82550; 82553; 83690; 84484; 85025; 93005; 93010; 99285

== ENCOUNTER 2019-10-25 21:48 | Emergency (ER) | payer OTHER ==
[2019-10-25 23:02] LABS: APPEARANCE,URINE CLEAR; BILIRUBIN,URINE NEGATIVE (NEGATIVE); COLOR,URINE YELLOW; GLUCOSE, URINE NEGATIVE (NEGATIVE); KETONES,URINE NEGATIVE (NEGATIVE); LEUKOCYTE ESTERASE,URINE NEGATIVE (NEGATIVE); NITRITE,URINE NEGATIVE (NEGATIVE); PROTEIN,URINE 30 mg/dL (NEGATIVE); URINE SPECIFIC GRAVITY 1.019
[2019-10-25 23:03] LABS: ABSOLUTE BASOPHILS # (AUTO) 0.1 10^3/uL (0.0-0.2); ABSOLUTE EOSINOPHILS # (AUTO) 0.1 10^3/uL (0.0-0.6); ABSOLUTE LYMPHOCYTES (AUTO) 2.6 10^3/uL (0.5-4.7); ABSOLUTE MONOCYTES (AUTO) 0.7 10^3/uL (0.1-1.4); ABSOLUTE NEUT (AUTO) 10.3 10^3/uL (1.7-8.2); BASOPHILS % (AUTO) 0.5 % (0-2); EOSINOPHILS % (AUTO) 0.7 % (0-6); HEMATOCRIT 43.1 % (37.9-51.0); HEMOGLOBIN 14.4 g/dL (13.5-17.0); LYMPHOCYTES % (AUTO) 18.8 % (13-45); MEAN CORPUSCULAR HEMOGLOBIN 27.4 pg (27.0-33.4); MEAN CORPUSCULAR HGB CONC 33.5 g/dL (32.0-36.0); MEAN CORPUSCULAR VOLUME 82 fl (80-97); MONOCYTES % (AUTO) 5.1 % (3-13); PLATELET COUNT 218 10^3/uL (150-450); RED BLOOD COUNT 5.27 10^6/uL (4.35-5.55); RED CELL DISTRIBUTION WIDTH 14.6 % (11.5-14.0); SEGMENTED NEUTROPHILS % (AUTO) 74.9 % (42-78); TOTAL CELLS COUNTED % (AUTO) 100 %; WHITE BLOOD COUNT 13.8 10^3/uL (4.0-10.5)
[2019-10-25 23:15] LABS: URINE AMPHETAMINES SCREEN NEGATIVE; URINE BARBITURATES SCREEN NEGATIVE; URINE BENZODIAZEPINES SCREEN NEGATIVE; URINE COCAINE SCREEN NEGATIVE; URINE MARIJUANA (THC) SCREEN NEGATIVE; URINE METHADONE SCREEN NEGATIVE; URINE PHENCYCLIDINE SCREEN NEGATIVE
[2019-10-25 23:18] LABS: ACETAMINOPHEN < 10 ug/mL (10-30); ALBUMIN 5.2 g/dL (3.5-5.0); ALCOHOL < 10 mg/dL (NONE DETECTED); ALKALINE PHOSPHATASE 52 U/L (38-126); ANION GAP 10 (5-19); ASPARTATE AMINO TRANSFERASE 23 U/L (17-59); BILIRUBIN,DIRECT 0.1 mg/dL (0.0-0.4); BILIRUBIN,TOTAL 0.4 mg/dL (0.2-1.3); BLOOD UREA NITROGEN 14 mg/dL (7-20); CALCIUM 10.2 mg/dL (8.4-10.2); CARBON DIOXIDE 27 mmol/L (22-30); CHLORIDE 105 mmol/L (98-107); GLUCOSE 90 mg/dL (75-110); SALICYLATE < 1.0 mg/dL (2.0-20.0); TOTAL PROTEIN 8.6 g/dL (6.3-8.2)
[2019-10-26] MEDS ORDERED: ACETAMINOPHEN 325 MG TABLET PO ONE (00:06)
[2019-10-26] MEDS ORDERED: DIAZEPAM INJ 10 MG/2 ML DISP.SYRIN IM ONE (02:04)
[2019-10-26 02:08] VITALS: BP 128/87
--- NOTE | 2019-10-26 02:11 | ER Document Report ---
HPI - HPI Patient complains to provider of: concern for ETOH withdrawal Time Seen by Provider: 10/26/19 01:48 Pain Level: 4 Context: Generally healthy 39-year-old male with history of alcohol use disorder presents to with chief complaint of anxiety. Patient states he is concerned that he might be at risk for seizure because he drank alcohol last night due to a history of seizure 2 and half years ago secondary to alcohol withdrawal. Erendira gonzalez states in the past he was a heavy daily drinker but now only drinks socially. He said he did drink a large amount of alcohol last night but is only a social drinker. Patient states that he has anxiety. Patient denies palpitations, diaphoresis, agitation. - CONSTITUTIONAL Constitutional: DENIES: Fever, Chills - REPRODUCTIVE Reproductive: DENIES: : Past Medical History - Social History Smoking Status: Current Every Day Smoker Frequency of alcohol use: Occasional Drug Abuse: None Family History: CAD Patient has suicidal ideation: No Patient has homicidal ideation: No Neurological Medical History: Reports: Hx Seizures - from ETOH withdrawal Renal/ Medical History: Denies: Hx Peritoneal Dialysis Musculoskeletal Medical History: Reports Hx Arthritis Psychiatric Medical History: Reports: Hx Anxiety, Hx Depression - and anxiety, Hx Post Traumatic Stress Disorder - Immunizations Hx Diphtheria, Pertussis, Tetanus Vaccination: - nutd Vertical Provider Document - CONSTITUTIONAL Notes: PHYSICAL EXAMINATION: Reviewed vital signs and charting by RN GENERAL: Alert, interacts well. No acute distress. HEAD: Normocephalic, atraumatic. EYES: Pupils equal and round. Extraocular movements intact. ENT: Oral mucosa moist, tongue midline. NECK: Full range of motion. Trachea midline. LUNGS: Clear to auscultation bilaterally, no wheezes, rales, or rhonchi. No respiratory distress. HEART: Regular rate and rhythm. No murmur ABDOMEN: soft, non-tender. No distention. Bowel sounds present EXTREMITIES: Moves all 4 extremities spontaneously. No edema, No cyanosis. NEURO: A &O X 3, normal speech, normal gailt, PERRL, EOMI, SILT, follows commands in all 4 extremities, no gross abnormalities of cranial nerves, no focal neuro deficits, no pronator drift, [id number] testing normal, rapid alternating hand movements normal, [id number] normal, health and safety coordinator strength 5/5 bilateral, 5/5 strength in both proximal and distal upper and lower extremities PSYCH: Normal affect, normal mood. SKIN: Warm, dry, normal turgor. No rashes or lesions noted. - INFECTION CONTROL TRAVEL OUTSIDE OF THE [place] IN LAST 30 DAYS: No Course - Re-evaluation Re-evalutation: 10/26/19 02:13 Overall well-appearing. Patient with no signs of acute alcohol withdrawal at this time. Patient is not tachycardic, EKG show sinus rhythm with a rate of 78, normal axis, no ST segment elevations or ST segment depressions, QTC 478. Patient is not agitated, not diaphoretic. Given Valium 10 mg IM once and send him home with a very short course of Valium p.o. to bridge him for the next day or 2. I explained to patient that he needs to [facility] potential medication management with something like an SSRI. At at this time he is stable for discharge. - Vital Signs Vital signs: Temp Pulse Resp BP Pulse Ox 98.2 F 92 20 148/98 H 95 10/25/19 21:52 10/25/19 21:52 10/25/19 21:52 10/25/19 21:52 10/25/19 21:52 - Laboratory Result Diagrams: 10/25/19 22:40 10/25/19 22:40 Laboratory results interpreted by me: 10/25/19 10/25/19 10/25/19 22:40 22:40 22:40 WBC 13.8 H RDW 14.6 H Absolute Neuts (auto) 10.3 H Total Protein 8.6 H Albumin 5.2 H Urine Protein 30 H Urine Urobilinogen 2.0 H Salicylates < 1.0 L Acetaminophen < 10 L Discharge - Discharge Clinical Impression: Anxiety, Alcohol use Condition: Good Disposition: HOME, SELF-CARE Additional Instructions: You have been sent home on medication to help if you have any withdrawal symptoms from alcohol. You should only take this medication if you significant anxiety your heart is beating fast, you break out into sweats. This will not completely remove all your symptoms from tension withdrawal should make it so that your symptoms are more manageable. You need to return to the emergency room immediately if you pass out, or vomiting so severely your unable to keep anything down, start hallucinate, or have any other symptoms that are of concern to you. Like we discussed, the Valium that I have prescribed for you simply the crotch for anxiety and if this is unrelated to alcohol then is important that yo u follow[facility] with the [facility] to discuss further management. Prescriptions: Diazepam [Valium 5 mg Tablet] 5 mg PO QIDP PRN #8 tablet PRN Reason: Referrals: MARGARITA MILLER DO [Primary Care Provider] - Follow up as needed
--- NOTE | 2019-10-26 12:07 | EKG REPORT ---
SEVERITY:- ABNORMAL ECG - SINUS RHYTHM PROBABLE LEFT ATRIAL ABNORMALITY NONSPECIFIC T ABNORMALITIES, INFERIOR LEADS ST ELEV, PROBABLE NORMAL EARLY REPOL PATTERN : Confirmed by: Jose De Jesus Tuttle 26-Oct-2019 12:06:17
== END 2019-10-26 02:37 | disposition home or self-care (01) ==
LOC: ER 21:48
DX: F41.9 Anxiety disorder, unspecified (principal); F10.10 Alcohol abuse, uncomplicated
CPT/HCPCS: 93005; 99285; 96372; 36415; 80307 ×4; 85025; 80053; 81001; 93010; J3360

== ENCOUNTER 2019-12-29 12:53 | Emergency (ER) | payer OTHER ==
[2019-12-29] MEDS ORDERED: IBUPROFEN 600 MG TABLET PO ONE (13:47)
[2019-12-29] MEDS ORDERED: ONDANSETRON 4 MG TAB.RAPDIS PO ONE (13:47)
--- NOTE | 2019-12-29 13:49 | ER Document Report ---
HPI - HPI Time Seen by Provider: 12/29/19 13:44 Pain Level: 5 Context: CHIEF COMPLAINT: Flulike symptoms for 3 to 4 days HPI: 39-year-old male who did not get a flu shot this year presenting to the emergency department complaining of flulike symptoms over the last 3 to 4 days. Has had scratchy throat, facial congestion, frontal headache, nonproductive cough, generalized myalgia, mild nausea without vomiting. Denies abdominal pain. Denies shortness of breath. Has had subjective fevers ROS: See HPI - all other systems were reviewed and are otherwise negative Constitutional: + fever Eyes: no drainage, no blurred vision ENT: no runny nose, + sore throat Cardiovascular: no chest pain Resp: no SOB, + cough GI: no vomiting, no diarrhea, no abdominal pain, positive nausea : no dysuria Integumentary: no rash Allergy: no hives Musculoskeletal: no extremity pain or swelling Neurological: no numbness/tingling, no weakness positive headache MEDICATIONS: I agree with the patient medications as charted by the RN. ALLERGIES: I agree with the allergies as charted by the RN. PAST MEDICAL HISTORY/PAST SURGICAL HISTORY: Reviewed and agree as charted by RN. SOCIAL HISTORY: Reviewed and agree as charted by RN. FAMILY HISTORY: No significant familial comorbid conditions directly related to patient complaint EXAM: Reviewed vital signs as charted by RN. CONSTITUTIONAL: Alert and oriented and responds appropriately to questions. Slightly ill-appearing; well-nourished HEAD: Normocephalic; atraumatic EYES: PERRL; Conjunctivae clear, sclerae non-icteric ENT: normal nose; no rhinorrhea; moist mucous membranes; mild pharyngeal erythema is noted, no uvula edema or deviation, no tonsillar hypertrophy, phonation normal NECK: Supple without meningismus; non-tender; no cervical lymphadenopathy, no masses CARD: RRR; no murmurs, no clicks, no rubs, no gallops; symmetric distal pulses RESP: Normal chest excursion without splinting or tachypnea; breath sounds clear and equal bilaterally; no wheezes, no rhonchi, no rales, pulse oximetry 98% on room air not hypoxic ABD/GI: Normal bowel sounds; non-distended; soft, non-tender, no rebound, no guarding; no palpable organomegaly or masses. BACK: The back appears normal and is non-tender to palpation, there is no CVA tenderness EXT: Normal ROM in all joints; non-tender to palpation; no cyanosis, no effusions, no edema SKIN: Normal color for age and race; warm; dry; good turgor; no acute lesions n oted NEURO: Moves all extremities equally; Motor and sensory function intact PSYCH: The patient's mood and manner are appropriate. Grooming and personal hygiene are appropriate. MDM: 39-year-old male with flulike symptoms. Will check influenza and strep. Will check chest x-ray to evaluate for infiltrate. Will give Zofran, Motrin, low suspicion for meningitis at this time - CONSTITUTIONAL Constitutional: DENIES: Fever, Chills - NEURO Neurology: REPORTS: Headache - RESPIRATORY Respiratory: REPORTS: Coughing - REPRODUCTIVE Reproductive: DENIES: : Past Medical History - Social History Smoking Status: Unknown if Ever Smoked Family History: CAD Patient has suicidal ideation: No Patient has homicidal ideation: No Neurological Medical History: Reports: Hx Seizures - from ETOH withdrawal Renal/ Medical History: Denies: Hx Peritoneal Dialysis Musculoskeletal Medical History: Reports Hx Arthritis Psychiatric Medical History: Reports: Hx Anxiety, Hx Depression - and anxiety, Hx Post Traumatic Stress Disorder - Immunizations Hx Diphtheria, Pertussis, Tetanus Vaccination: - nutd Vertical Provider Document - INFECTION CONTROL TRAVEL OUTSIDE OF THE [place] IN LAST 30 DAYS: No Course - Re-evaluation Re-evalutation: 12/29/19 14:26 Chest x-ray, influenza test, strep test all negative likely a viral etiology treat symptomatically follow-up PCP - Vital Signs Vital signs: Temp Pulse Resp BP Pulse Ox 100.8 F H 111 H 22 H 129/85 H 95 12/29/19 13:19 12/29/19 13:19 12/29/19 13:19 12/29/19 13:19 12/29/19 13:19 Discharge - Discharge Clinical Impression: Fever in adult, Influenza-like illness Condition: Stable Disposition: HOME, SELF-CARE Additional Instructions: 1. hydrate well at home with juices and water 2. treat fevers and body aches with Motrin and Tylenol 3. out of work for the next 2 days 4. follow up recheck with your PCP in 1-2 days, call for appt. 5. return to the ED for worsening condition Prescriptions: Ibuprofen [Motrin 600 Mg Tablet] 600 mg PO TID #15 tablet Ondansetron [Zofran Odt 4 mg Tablet] 1 - 2 tab PO Q4H PRN #15 tab.rapdis PRN Reason: For Nausea/Vomiting Forms: Return to Work Referrals: MARGARITA MILLER DO [Primary Care Provider] - Follow up as needed
--- NOTE | 2019-12-29 14:15 | RADIOLOGY REPORT (SQ) ---
EXAM DESCRIPTION: CHEST 2 VIEWS COMPLETED DATE/TIME: 12/29/2019 2:05 pm REASON FOR STUDY: cough COMPARISON: 06/09/2019 EXAM PARAMETERS: NUMBER OF VIEWS: two views TECHNIQUE: Digital Frontal and Lateral radiographic views of the chest acquired. RADIATION DOSE: NA LIMITATIONS: none FINDINGS: LUNGS AND PLEURA: No opacities, masses or pneumothorax. No pleural effusion. MEDIASTINUM AND HILAR STRUCTURES: No masses or contour abnormalities. HEART AND VASCULAR STRUCTURES: Heart normal size. No evidence for failure. BONES: No acute findings. HARDWARE: None in the chest. OTHER: No other significant finding. IMPRESSION: No focal consolidation or other evidence of acute intrathoracic process. TECHNICAL DOCUMENTATION: JOB ID: [id number] [employer]- All Rights Reserved Reading location - IP/workstation name: [email or web address]
[2019-12-29 14:25] LABS: A TYPE INFLUENZA AG NEGATIVE (NEGATIVE); B INFLUENZA AG NEGATIVE (NEGATIVE)
[2019-12-29 14:45] VITALS: BP 126/82
== END 2019-12-29 14:40 | disposition home or self-care (01) ==
LOC: ER 12:53
DX: J11.1 Influenza due to unidentified influenza virus with other respiratory manifestations (principal); R50.9 Fever, unspecified; R51 Headache; R05 Cough; M79.10 Myalgia, unspecified site; R11.0 Nausea
CPT/HCPCS: 99283; 87070; 87880; 87804; 71046; S0119